=== PATIENT | male | born 1930 | race Caucasian/White ===

== ENCOUNTER 2018-02-14 08:31 | Observation (INO) | payer OTHER ==
[~2018-02-14] VITALS: Ht 177.8 cm; Wt 90.3 kg
[~2018-02-14 08:31] MED LIST: ALLOPURINOL100 MG PO; ASA81 MG; ASPIRIN EC81 MG PO; CARVEDILOL3.125 MG PO; CENTRUM SILVER1 EAC3 PO; COQ-10100 MG PO; D-3 PO; DIOVAN80 MG PO; FUROSEMIDE40 MG PO; GLUCOSAMINE &1 EAC1 PO; LASIX40 MG PO; LOSARTAN POTASS50 MG PO; METOLAZONE2.5 MG PO; METOLAZONE5 MG PO; MINOCYCLINE HC100 MG PO; NORCO 5-325 TA1 EACH PO; SPIRONOLACTONE25 MG PO; VITAMIN A AND1 EACH PO; VITAMIN E400 UNI1 PO; Z.0.AMLODIPINE BESY1; Z.0.LASIX40 MG; Z.0.METOPROLOL SUCC5; Z.0.SIMVASTATIN20 MG
[2018-02-14] MEDS ORDERED: ASPIRIN 325 MG TAB PO ONE (08:45)
--- NOTE | 2018-02-14 09:13 | Diagnostic Imaging Report ---
PROCEDURE: A single AP view of the chest. COMPARISON: Chest radiograph 09/18/17. INDICATIONS: CHEST PAIN FINDINGS: Lines/tubes: Left sided AICD device in unchanged position. Lungs: Opacity in the right lower and left mid and lower lung zones. Findings of venous cephalization without evidence of pulmonary edema. Pleura: Bilateral small pleural effusions. Heart and mediastinum: Enlarged cardiomediastinal silhouette is again noted. Atherosclerotic calcification of the aortic arch. Status post percutaneous aortic valve replacement. Bones: No acute bony abnormality. Status post median sternotomy. IMPRESSION: Cardiomegaly with small bilateral pleural effusions. Pulmonary venous congestion without pulmonary edema. Lower lung zone predominant opacities, likely atelectasis. Dictated by: CAREN HATCH M.D. on 02/14/2018 at 9:18 Electronically approved by: CAREN HATCH M.D. on 02/14/2018 at 9:18
[2018-02-14 09:18] LABS: BASOPHILS % 0.4 % (0.0-1.0); EOSINOPHILS # (AUTO) 0.1 (0.0-0.4); EOSINOPHILS % 0.9 % (0.0-6.0); HEMATOCRIT 38.1 % (38.2-49.6); HEMOGLOBIN 13.5 g/dL (14.0-18.0); LYMPHOCYTES # (AUTO) 1.2 (1.0-3.2); LYMPHOCYTES % 16.7 % (18.0-39.1); MEAN CORPUSCULAR HEMOGLOBIN 34.4 pg (28-32); MEAN CORPUSCULAR HGB CONC 35.4 g/dL (31-35); MEAN CORPUSCULAR VOLUME 96.9 fL (81-99); MONOCYTES # (AUTO) 0.9 (0.2-0.8); MONOCYTES % 11.9 % (4.4-11.3); NEUTROPHILS # (AUTO) 5.2 (2.1-6.9); NEUTROPHILS % 69.6 % (38.7-80.0); PLATELET COUNT 218 x10e3/uL (140-360); RED BLOOD COUNT 3.93 x10e6/uL (4.3-5.7); RED CELL DISTRIBUTION WIDTH 13.8 % (11.7-14.4)
[2018-02-14 09:28] LABS: INR 1.19; PROTHROMBIN TIME 14.2 seconds (11.9-14.5)
[2018-02-14 09:29] LABS: PARTIAL THROMBOPLASTIN TIME 28.6 seconds (23.8-35.5)
[2018-02-14 09:36] LABS: ALANINE AMINOTRANSFERASE 32 IU/L (0-55); ALBUMIN 3.4 g/dL (3.5-5.0); ALKALINE PHOSPHATASE 51 IU/L (40-150); BLOOD UREA NITROGEN 22 mg/dL (7-26); BUN/CREATININE RATIO 20 (6-25); CALCIUM 8.9 mg/dL (8.4-10.2); CARBON DIOXIDE 22 mmol/L (22-29); CHLORIDE 99 mmol/L (98-107); CREATINE KINASE 94 IU/L (30-200); CREATININE, SERUM 1.12 mg/dL (0.72-1.25); EST GLOMERULAR FILTRATION RATE > 60 ML/MIN (60-); GLUCOSE 143 mg/dL (74-118); SODIUM 132 mmol/L (136-145)
[2018-02-14] MEDS ORDERED: ONDANSETRON HCL INJ 2 MG/ML VIAL IV PRN (11:30)
[2018-02-14 13:00] VITALS: BP 173/85
[2018-02-14] MEDS: FUROSEMIDE INJ 10 MG/ML 4 ML VIAL IV SCH ×2 (13:10→21:10)
[2018-02-14] MEDS ORDERED: CARVEDILOL 3.125 MG TAB PO SCH (13:15)
[2018-02-14 13:35] LABS: CHOL/HDL RATIO 5.2 (3.9-4.7)
[2018-02-14 13:50] VITALS: BP 173/85
[2018-02-14] MEDS: ACETAMINOPHEN 325 MG TAB PO PRN (14:28)
--- NOTE | 2018-02-14 14:29 | Consultation ---
DATE OF CONSULTATION: February 14, 2018 CARDIOLOGY CONSULTATION REQUESTING PHYSICIAN: Dr. Garcia. REASON FOR CONSULTATION: Chest pain and CHF. HISTORY OF PRESENT ILLNESS: This is an 87-year-old male that presented with shortness of breath. According to the patient and at the bedside, yesterday he started having chest pain, shortness of breath, and he called 911. When the ambulance arrived, he refused to come to the emergency room and decided to stay at home to see if he was going to get better or not. He stated this morning he started having the chest pain again on the left side of the chest on a scale of 5 out of 10 with no radiation, orthopnea, that he decided to come into the emergency room for evaluation. He has a history of CAD, aortic valve replacement, and ICD. He stated his diplomatic courier is Dr. Pathak with [facility] and he was seen recently 2 weeks ago by him. He denied any palpitation, any dizziness, any diaphoresis or headache. Troponin x1 was negative. EKG showed no ST abnormalities. BNP 1481, and chest x-ray showed cardiomegaly with small bilateral pleural effusion, pulmonary venous congestion without pulmonary edema. PAST MEDICAL HISTORY: BPH, gout, hypertension, hyperlipidemia, COPD, aortic valve replacement, systolic CHF, and obesity. PAST SURGICAL HISTORY: Tonsillectomy, aortic valve replacement, open heart surgery x4 vessels, and ICD placement. FAMILY HISTORY: Noncontributory. SOCIAL HISTORY: He lives at home with the , and he quit smoking in the 60s. MEDICATIONS: He was on allopurinol, aspirin, Coreg, Aldactone, Diovan, and Lasix. ALLERGIES: HE IS NOT ALLERGIC TO ANY MEDICATION. REVIEW OF SYSTEMS: Negative except those mentioned above. He is positive for chest pain and shortness of breath. PHYSICAL EXAMINATION VITAL SIGNS: Temperature 98, heart rate 61, respiration 18, blood pressure 148/81, oxygen saturation 97% on room air. GENERAL: He is obese, awake, alert, and oriented x3. HEENT: Mucous membrane moist. NECK: Supple. LUNGS: Bilaterally with decreased breath sounds. CARDIOVASCULAR: S1/S2 present with systolic murmur. ABDOMEN: Soft. NEUROLOGICAL: He is able to move all extremities. EXTREMITIES: Bilateral lower extremity with no edema. LABS: Sodium 132, potassium 4.0, chloride 99, CO2 22, BUN 22, creatinine 1.12, glucose 143. White blood cell 7.41, hemoglobin 13.5, hematocrit 38.1, platelet 218. PT 14.2, PTT 28.6, INR 1.19. IMPRESSION 1. Acute systolic congestive heart failure exacerbation. 2. Coronary artery disease with implantable cardioverter-defibrillator. 3. Aortic valve replacement with coronary artery bypass graft. 4. Hypertension. 5. Hyperlipidemia. 6. Hyponatremia. 7. Chest pain. 8. History of gout. ASSESSMENT/PLAN 1. Will go ahead and get an echocardiogram to reassess the LV and the valve function. He had an echo done in 2016 that showed depressed systolic function, EF 30% to 35%. 2. He had an aortic valve replacement, but he is not sure if it is prosthetic or nonprosthetic and he is not on any p.o. anticoagulation, just aspirin. 3. Will go ahead and get his home medication list. Will get serial cardiac enzymes, put him on fluid restriction 1.5 liter. Will continue diuretic, beta sarah and JOSHUA inhibitor. Further cardiac workup pending clinical course. Thank you for this consultation. Dictated by: Mohit Alaniz NP Job#: [id number]
[2018-02-14] MEDS: CARVEDILOL 12.5 MG TAB PO SCH ×2 (14:53→21:11)
[2018-02-14 15:10] VITALS: BP 152/73
[2018-02-14] MEDS: TRAMADOL HCL 50 MG TAB PO PRN (17:14)
--- NOTE | 2018-02-14 17:54 | Diagnostic Imaging Report ---
PROCEDURE:X-RAY RIGHT SHOULDER, COMPLETE COMPARISON:None. INDICATIONS:RIGHT SHOULDER PAIN FINDINGS: There are no fractures, dislocations, lytic or blastic lesions. Adequate internal and external rotation. Degenerative changes of the right AC joint. The soft-tissues are unremarkable. CONCLUSION: No acute fracture or dislocation of the right shoulder. Dictated by: Kulwant Childress M.D. on 02/14/2018 at 18:00 Electronically approved by: Kulwant Childress M.D. on 02/14/2018 at 18:00
[2018-02-14 18:24] LABS: CREATINE KINASE MB 3.1 ng/mL (0-5.0)
[2018-02-14 20:00] VITALS: BP 148/71
[2018-02-14 21:00] VITALS: BP 148/71
[2018-02-15] VITALS: BP 156/74
[2018-02-15 04:00] VITALS: BP 159/72
[2018-02-15 05:49] LABS: CHOL/HDL RATIO 5.6 (3.9-4.7)
[2018-02-15 08:10] VITALS: BP 166/76
[2018-02-15 08:11] VITALS: BP 166/76
[2018-02-15] MEDS: FUROSEMIDE INJ 10 MG/ML 4 ML VIAL IV SCH (08:20)
[2018-02-15] MEDS: CARVEDILOL 12.5 MG TAB PO SCH (08:21)
[2018-02-15] MEDS: TRAMADOL HCL 50 MG TAB PO PRN (08:22)
[2018-02-15] MEDS ORDERED: ALLOPURINOL 100 MG TAB PO SCH (09:00)
[2018-02-15] MEDS ORDERED: VALSARTAN 80 MG TAB PO SCH (09:00)
[2018-02-15] MEDS ORDERED: ASPIRIN 81 MG ENTERIC COATED PO SCH (09:00)
[2018-02-15] MEDS ORDERED: ASPIRIN 325 MG TAB EC PO SCH (09:00)
[2018-02-15] MEDS ORDERED: VALSARTAN 160 MG TAB PO SCH (09:00)
[2018-02-15 11:22] VITALS: BP 129/58
[2018-02-15] MEDS: ACETAMINOPHEN 325 MG TAB PO PRN (12:34)
[2018-02-15] MEDS ORDERED: LASIX40 MG PO (15:00)
[2018-02-15] MEDS ORDERED: ALDACTONE25 MG PO (15:00)
== END 2018-02-15 15:15 | disposition home or self-care (01) ==
LOC: ER 08:31 → ERHOLD 11:36 → IMCU 12:29
PROVIDERS: ADMIT Internal Medicine; ATTEND Internal Medicine
DX: I11.0 Hypertensive heart disease with heart failure (principal); I50.23 Acute on chronic systolic (congestive) heart failure; R07.9 Chest pain, unspecified; Z95.0 Presence of cardiac pacemaker; I25.10 Atherosclerotic heart disease of native coronary artery without angina pectoris; Z95.1 Presence of aortocoronary bypass graft; I71.4 Abdominal aortic aneurysm, without rupture; Z95.2 Presence of prosthetic heart valve; Z95.810 Presence of automatic (implantable) cardiac defibrillator; E78.5 Hyperlipidemia, unspecified; E87.1 Hypo-osmolality and hyponatremia; M10.9 Gout, unspecified; J90 Pleural effusion, not elsewhere classified
CPT/HCPCS: 36415 ×2; 71045; 73030; 80053; 80061 ×2; 82550 ×2; 82553 ×2; 83036; 83735; 83880; 84484 ×2; 85025; 85610; 85730; 93005; 93306; 97116; 97161; 99284; G0378 ×2; G8978; G8979; J1940 ×2; J2405

== ENCOUNTER 2018-08-24 17:37 | Observation (INO) | payer MEDICARE, OTHER ==
[~2018-08-24] VITALS: Ht 177.8 cm; Wt 100.5 kg
[~2018-08-24 17:37] MED LIST changes: +ALDACTONE25 MG PO
--- OUTSIDE RECORDS SUMMARY | 2018-08-24 17:41 | XMS REPORT | Continuity of Care Document ---
Author Author Konstantin rojas Organization Interface Address Unknown Phone Unavailable Problems Problem Status Onset Date Classification Date Reported Comments Source 424.0, 779.7 Active 01/08/2015 [facility] UNK Active 12/01/2013 [facility] CARDIAC REHAB Active 07/19/2012 [facility] SEVERE AORTIC STENOSIS, ACUTEON CHRONIC Active 05/20/2012 [facility] SEVERE AORTIC STENOSIS, CHF Active 02/15/2012 [facility] ANGINA Active 01/12/2012 [facility] Aortic aneurysm, abdominal Resolved Problem 02/04[facility] - Repair of abdominal aortic aneurysm using bifurcation graft Active Problem 04/17/2016 SHAILESH Rojas [facility] [place] Acute myocardial infarction Active Problem 04/17/2016 SHAILESH Rojas [facility] [place] Aortic aneurysm, abdominal Resolved Problem 04/17/2016 [facility] [place] Aortic stenosis Resolved Problem 04/17/2016 SHAILESH Rojas [facility] [place] CABG - Coronary artery bypass graft<sup>1</sup> Resolved Problem 04/17/20162008 SHAILESH Rojas [facility] [place] CABG - Coronary artery bypass graft Active Problem 04/17/2016 SHAILESH Rojas [facility] [place] Chest pain Active Problem 04/17/2016 SHAILESH Rojas [facility] [place] Hypercholesterolemia Active Problem 04/17/2016 SHAILESH Rojas [facility] [place] Hypertension monitoring telephone invite Active Problem 04/17/2016 SHAILESH Rojas [facility] [place] Ischemic cardiomyopathy Active Problem 04/17/2016 [facility]AILESH Rojas [facility] [place] AAA - Repair of abdominal aortic aneurysm using bifurcation graft Active Problem [facility]/09[facility] [place] Acute myocardial infarction Active Problem 02/09/2013 [facility] [place] Aortic aneurysm, abdominal Resolved Problem 02/09/2013 SHAILESH Rojas,[facility], [facility] [place] Aortic stenosis Resolved Problem 02/09/2013 SHAILESH Rojas,[facility], [facility] [place] CABG - Coronary artery bypass graft<sup>1</sup> Resolved Problem 02/09/2013 [id number] SHAILESH Rojas,[facility], [facility] [place] CABG - Coronary artery bypass graft Active Problem 02/09/2013 SHAILESH Rojas,[facility], [facility] [place] Chest pain Active Problem 02/09/2013 SHAILESH Rojas,[facility], [facility] [place] Hypercholesterolemia Active Problem 02/09/2013 SHAILESH Rojas,[facility], [facility] [place] Hypertension monitoring telephone invite Active Problem 02/09/2013 SHAILESH Rojas,[facility], [facility] [place] Ischemic cardiomyopathy Active Problem 02/09/2013 SHAILESH Rojas,[facility], [facility] [place] AORTIC VALVE DISORDER Active [facility] AC/CHR SYST/ALEKSANDRA HRT FAIL Active [facility] PERVENT LEUKOMALACIA Active [facility] Medications Medication Details Route Status Patient Instructions Ordering Provider Order Date Source Co-Q10 100 mg oral capsule 200 mg, 2 cap, PO, Daily, 30 cap, Substitution Allowed, CAP PO Active Jordon 05/28/2012 [facility] Fish Oil 1000 mg oral capsule 1,000 mg, 1 cap, PO, Daily, 30 cap, Substitution Allowed, CAP PO Active Jordon 05/28/2012 [facility] Toprol-XL 50 mg oral tablet, extended release 50 mg, 1 tab, PO, BID, 30 tab, Substitution Allowed, ERTAB PO Active Jordon 05/28/2012 [facility] losartan 50 mg oral tablet 50 mg, 1 tab, PO, Daily, 30 tab, Substitution Allowed, TAB PO Active Jordon 05/28/2012 [facility] aspirin 81 mg tablet, enteric coated 81 mg, 1 tab, PO, Daily, 30 tab, Substitution Allowed, ECTAB PO Active Jordon 05/28/2012 [facility] potassium chloride 40 mEq, 2 tab, Route: PO, Drug form: ERTAB, ONCE, Dosing Weight 89.801, kg, Start date: 05/28/12 7:56:00, Duration: 1 doses or times, Stop date: 05/28/12 7:56:00, For K=3.5 - 3.9 mEq/LFor K=3.5 - 3.9 mEq/L PO No Longer Active Park 05/28/2012 [facility] Restoril 15 mg, 1 cap, Route: PO, Drug form: CAP, Bedtime, PRN Sleep, Start date: 05/27/12 20:16:00, Duration: 30 day, Stop date: 06/26/12 20:15:00 PO No Longer Active Vejpongsa 05/28/2012 [facility] Ambien 5 mg, Route: PO, Bedtime, Dosing Weight 89.801, kg, PRN Insomnia, Start date: 05/27/12 20:09:00, Duration: 30 day, Stop date: 06/26/12 20:08:00 PO No Longer Active Vejpongsa 05/28/2012 [facility] Fish Oil 1,000 mg, 1 cap, Route: PO, Drug form: CAP, Daily, Dosing Weight 89.801, kg, Start date: 05/27/12 13:30:00, Duration: 30 day, Stop date: 06/26/12 9:00:00 PO No Longer Active Viri 05/27/2012 [facility] Co-Q10 200 mg, 1 cap, Route: PO, Drug form: CAP, Daily, Dosing Weight 89.801, kg, Start date: 05/27/12 13:30:00, Duration: 30 day, Stop date: 06/26/12 9:00:00 PO No Longer Active Viri 05/27/2012 [facility] Colace 100 mg oral capsule 100 mg, 1 cap, Route: PO, Drug form: CAP, BID, Dosing Weight 89.801, kg, Priority: NOW, Start date: 05/27/12 10:27:00, Duration: 30 day, Stop date: 06/26/12 9:00:00 PO No Longer Active Park 05/27/2012 [facility] MiraLax 17 gm, 1 pkt, Route: PO, Drug form: PWDR, Daily, Dosing Weight 89.801, kg, Priority: NOW, Start date: 05/27/12 10:26:00, Duration: 30 day, Stop date: 06/26/12 9:00:00 PO No Longer Active Park 05/27/2012 [facility] Toprol-XL 50 mg oral tablet, extended release 50 mg, 1 tab, Route: PO, Drug form: ERTAB, BID, Start date: 05/27/12 9:00:00, Duration: 30 day, Stop date: 06/25/12 17:00:00 PO No Longer Active Jordon 05/27/2012 [facility] calcium gluconate + Sodium Chloride 0.9% IV 100 mL 2,000 mg, 20 mL, Route: IVPB, ONCE, Dosing Weight 89.801, kg, Start date: 05/27/12 4:25:00, Stop date: 05/27/12 4:25:00 IVPB No Longer Active Canales 05/27/2012 [facility] Saline Flush 0.9% 5 ml, Route: IVP, Drug Form: INJ, Dosing Weight 89.801, kg, Q12H, Start date: 05/26/12 21:00:00, Duration: 30 day, Stop date: 06/25/12 9:00:00 IVP No Longer Active Matheus 05/27/2012 [facility] Ancef 1 gm, Route: IVPB, Drug form: PDR/INJ, ONCE, Dosing Weight 89.801, kg, Start date: 05/26/12 20:00:00, Duration: 1 doses or times, Stop date: 05/26/12 20:00:00 IVPB No Longer Active Matheus 05/27/2012 [facility] lidocaine 1% 5 mL, Route: SUB-Q, Drug Form: INJ, Dosing Weight 89.801, kg, ONCE, NOW, Start date: 05/26/12 14:19:00, Stop date: 05/26/12 14:19:00 SUB-Q No Longer Active Xavier 05/26/2012 [facility] magnesium sulfate 2 gm, 50 mL, Route: IVPB, Drug form: INJ, Q2H, Start date: 05/26/12 14:00:00, Duration: 2 doses or times, Stop date: 05/26/12 16:00:00 IVPB No Longer Active Viri 05/26/2012 [facility] potassium chloride 20 mEq, Route: IVPB, Q2H, Dosing Weight 89.801, kg, Total dose=40 mEq, Start date: 05/26/12 14:00:00, Duration: 2 doses or times, Stop date: 05/26/12 16:00:00 IVPB No Longer Active Matheus 05/26/2012 [facility] losartan 50 mg, 1 tab, Route: PO, Drug form: TAB, Daily, Dosing Weight 89.801, kg, Priority: NOW, Start date: 05/26/12 13:51:00, Duration: 30 day, Stop date: 06/25/12 9:00:00 PO No Longer Active Jordon 05/26/2012 [facility] normal saline 0.9% IV 1,000 mL 1,000 mL, Rate: 50 ml/hr, Infuse over: 20 hr, Route: IV, kg, Total Volume: 1,000, Start date: 05/26/12 13:37:00, Duration: 30 day, Stop date: 06/25/12 13:36:00 IV No Longer Active Xavier 05/26/2012 [facility] potassium chloride 40 mEq, 2 tab, Route: PO, Drug form: ERTAB, ONCE, Dosing Weight 89.801, kg, Electrolyte replacement, Priority: NOW, Start date: 05/26/12 13:28:00, Stop date: 05/26/12 13:28:00 PO No Longer Active Viri 05/26/2012 [facility] magnesium sulfate 4 gm, Route: IV, ONCE, Dosing Weight 89.801, kg, Priority: NOW, Start date: 05/26/12 13:27:00, Stop date: 05/26/12 13:27:00 IV No Longer Active Viri 05/26/2012 [facility] morphine Sulfate 2 mg, 1 mL, Route: IVP, Drug form: INJ, ONCE, Dosing Weight 89.801, kg, Priority: NOW, Start date: 05/26/12 12:07:00, Stop date: 05/26/12 12:07:00 IVP No Longer Active Matheus 05/26/2012 [facility] normal saline 0.9% IV 500 mL 500 mL, Rate: 999 ml/hr, Infuse over: 0.5 hr, Route: IV, kg, Total Volume: 500, Start date: 05/26/12 11:57:00, Duration: 1 doses or times, Stop date: 05/26/12 12:26:00 IV No Longer Active Matheus 05/26/2012 [facility] morphine Sulfate 1 mg, 0.5 mL, Route: IVP, Drug form: INJ, Q6H, Dosing Weight 89.801, kg, PRN Pain, Start date: 05/26/12 11:56:00, Duration: 1 day, Stop date: 05/27/12 11:55:00 IVP No Longer Active Matheus 05/26/2012 [facility] Saline Flush 0.9% 5 ml, Route: IVP, Drug Form: INJ, Dosing Weight 89.801, kg, PRN, PRN Line Flush, Start date: 05/26/12 11:24:00, Duration: 30 day, Stop date: 06/25/12 11:23:00 IVP No Longer Active Matheus 05/26/2012 [facility] aspirin 81 mg, 1 tab, Route: PO, Drug form: ECTAB, Daily, Dosing Weight 89.801, kg, Start date: 05/26/12 9:00:00, Stop date: 06/23/12 21:00:00 PO No Longer Active Clifford 05/26/2012 [facility] losartan 50 mg, 1 tab, Route: PO, Drug form: TAB, Daily, Dosing Weight 89.801, kg, Start date: 05/26/12 9:00:00, Duration: 30 day, Stop date: 06/24/12 9:00:00 PO No Longer Active Jordon 05/26/2012 [facility] pneumococcal 23-valent vaccine 0.5 ml, Route: IM, Drug Form: INJ, Daily, Start date: 05/26/12 9:00:00, Duration: 1 doses or times, Stop date: 05/26/12 9:00:00 IM No Longer Active SYSTEM 05/26/2012 [facility] potassium chloride 40 mEq, 2 tab, Route: PO, Drug form: ERTAB, ONCE, Dosing Weight 89.801, kg, Start date: 05/26/12 3:13:00, Stop date: 05/26/12 3:13:00 PO No Longer Active Clifford 05/26/2012 [facility] potassium chloride 20 mEq, 100 mL, Route: IVPB, Q2H, Dosing Weight 89.801, kg, Total dose=60 mEq, Start date: 05/26/12 2:00:00, Duration: 3 doses or times, Stop date: 05/26/12 6:00:00 IVPB No Longer Active [facility] 05/26/2012 [facility] potassium chloride 40 mEq, 2 tab, Route: PO, Drug form: ERTAB, Daily, Dosing Weight 89.801, kg, Start date: 05/26/12 0:08:00, Duration: 30 day, Stop date: 06/24/12 9:00:00 PO No Longer Active [facility] 05/26/2012 [facility] cefazolin 1 gm, Route: IV, Drug form: PDR/INJ, ONCE, Dosing Weight 89.801, kg, Start date: 05/25/12 18:08:00, Stop date: 05/25/12 18:08:00 IV No Longer Active [facility] 05/26/2012 [facility] Co-Q10 100 mg oral capsule 200 mg, 2 cap, PO, Daily, 60 cap, Substitution Allowed, CAP PO No Longer Active Jordon 05/25/2012 [facility] furosemide 40 mg oral tablet 40 mg, 1 tab, PO, Daily, 30 tab, Substitution Allowed, TAB PO No Longer Active 05/25/2012 [facility] metolazone 10 mg oral tablet 10 mg, 1 tab, PO, Daily, 30 tab, Substitution Allowed, TAB PO No Longer Active 05/25/2012 [facility] Metoprolol Tartrate 50 mg oral tablet 50 mg, 1 tab, PO, Daily, Substitution Allowed PO No Longer Active 05/25/2012 [facility] pneumococcal 23-valent vaccine 0.5 ml, Route: IM, Drug Form: INJ, Start date: 05/19/12 9:00:00, Stop date: 05/19/12 9:00:00 IM No Longer Active SYSTEM 05/19/2012 SHAILESH Rojas,[facility], SHAILESH Marrero losartan 50 mg oral tablet 50 mg, 1 tab, PO, Daily, 30 tab, 2, 2, Substitution Allowed, TAB PO Active Roe 02/19/2012 [facility] potassium chloride 20 mEq oral tablet, extended release 20 mEq, 1 tab, Route: PO, Drug form: ERTAB, Q12H, Start date: 02/18/12 21:00:00, Duration: 2 day, Stop date: 02/20/12 9:00:00 PO No Longer Active Elaine 02/19/2012 [facility] Saline Flush 0.9% 5 ml, Route: IVP, Drug Form: INJ, Q12H, Start date: 02/18/12 12:00:00, Duration: 30 day, Stop date: 03/19/12 9:00:00 IVP No Longer Active Xavier 02/18/2012 [facility] Saline Flush 0.9% 5 ml, Route: IVP, Drug Form: INJ, PRN, PRN Line Flush, Start date: 02/18/12 11:04:00, Duration: 30 day, Stop date: 03/19/12 11:03:00 IVP No Longer Active Xavier 02/18/2012 [facility] DOBUTamine 1000 mg in 250 ml [id number] Premix (titrate) 1,000 mg 1,000 mg, 250 mL, Rate: 3 micrograms/kg/min, Route: IV, Total Volume: 250, Start date: 02/18/12 11:04:00, Duration: 30 day, Stop date: 03/19/12 11:03:00, Replace Every: 24 hr IV No Longer Active Xavier 02/18/2012 [facility] multivitamin with iron 1 tab, Route: PO, Drug Form: CAP, Daily, Start date: 02/18/12 9:00:00, Duration: 30 day, Stop date: 03/18/12 9:00:00 PO No Longer Active Jessica 02/18/2012 [facility] Toprol-XL 25 mg oral tablet, extended release 25 mg, Route: PO, Drug form: ERTAB, Q12H, Start date: 02/18/12 9:00:00, Duration: 30 day, Stop date: 03/18/12 21:00:00 PO No Longer Active Jessica 02/18/2012 [facility] metolazone 5 mg oral tablet 5 mg, 1 tab, Route: PO, Drug form: TAB, Daily, Start date: 02/18/12 9:00:00, Duration: 30 day, Stop date: 03/18/12 9:00:00 PO No Longer Active Jessica 02/18/2012 [facility] losartan 50 mg, Route: PO, Drug form: TAB, Daily, Start date: 02/18/12 9:00:00, Duration: 30 day, Stop date: 03/18/12 9:00:00 PO No Longer Active Jessica 02/18/2012 [facility] furosemide 20 mg oral tablet 20 mg, 1 tab, Route: PO, Drug form: TAB, Daily, Start date: 02/18/12 9:00:00, Duration: 30 day, Stop date: 03/18/12 9:00:00 PO No Longer Active Jessica 02/18/2012 [facility] potassium chloride 20 mEq/15 mL oral liquid 70 mEq, Route: PO, Drug form: LIQ, Daily, Start date: 02/18/12 9:00:00, Duration: 30 day, Stop date: 03/18/12 9:00:00 PO No Longer Active Jessica 02/18/2012 [facility] metoprolol extended release 12.5 mg, 1 ea, Route: PO, Drug form: TAB, ONCE, Start date: 02/18/12 3:42:00, Stop date: 02/18/12 3:42:00 PO Active Jessica 02/18/2012 [facility] metoprolol extended release 12.5 mg, 1 ea, Route: PO, Drug form: TAB, ONCE, Priority: NOW, Start date: 02/18/12 3:29:00, Stop date: 02/18/12 3:29:00 PO No Longer Active Blanca Mendoza 02/18/2012 [facility] metoprolol extended release 12.5 mg, 1 ea, Route: PO, Drug form: TAB, ONCE, Start date: 02/18/12 3:20:00, Stop date: 02/18/12 3:20:00 PO No Longer Active Jessica 02/18/2012 [facility] magnesium sulfate 2 gm, 50 mL, Route: IVPB, Drug form: INJ, ONCE, Total dose=2 gm, Start date: 02/18/12 3:13:00, Duration: 1 doses or times, Stop date: 02/18/12 3:13:00 IVPB No Longer Active Blanca Mendoza 02/18/2012 [facility] aspirin 81 mg, 1 tab, Route: PO, Drug form: CHEWTAB, ONCE, Start date: 02/18/12 3:00:00, Stop date: 02/18/12 3:00:00 PO No Longer Active Blanca Mendoza 02/18/2012 [facility] cefazolin 1 gm, Route: IVPB, Drug form: PDR/INJ, ONCALL, Start date: 02/18/12 3:00:00, Duration: 1 doses or times, Stop date: 02/18/12 18:00:00 IVPB No Longer Active Cat 02/18/2012 [facility] Restoril 30 mg, 2 cap, Route: PO, Drug form: CAP, Bedtime, PRN Sleep, Start date: 02/17/12 22:05:00, Duration: 30 day, Stop date: 03/18/12 22:04:00 PO No Longer Active Jessica 02/18/2012 [facility] Ambien 10 mg, Route: PO, Bedtime, PRN Insomnia, Start date: 02/17/12 21:56:00, Duration: 30 day, Stop date: 03/18/12 21:55:00 PO No Longer Active Jessica 02/18/2012 [facility] losartan 50 mg, 1 tab, Route: PO, Drug form: TAB, Daily, Start date: 02/17/12 21:15:00, Stop date: 03/18/12 9:00:00 PO No Longer Active Ronda 02/18/2012 [facility] Toprol-XL 25 mg oral tablet, extended release 25 mg, 1 tab, Route: PO, Drug form: ERTAB, Q12H, Start date: 02/17/12 21:14:00, Stop date: 03/18/12 21:00:00 PO No Longer Active Meyers 02/18/2012 [facility] potassium chloride 20 mEq/15 mL oral liquid 70 mEq, 52.5 mL, Route: PO, Drug form: LIQ, ONCE, Start date: 02/17/12 21:14:00, Stop date: 02/17/12 21:14:00 PO No Longer Active Jessica 02/18/2012 [facility] Co-Q10 200 mg oral tablet 200 mg, 1 tab, PO, Daily, Substitution Allowed, TAB PO Active 02/17/2012 [facility] pneumococcal 23-valent vaccine 0.5 ml, Route: IM, Drug Form: INJ, Start date: 01/28/12 9:00:00, Stop date: 01/28/12 9:00:00 IM No Longer Active SYSTEM 01/28/2012 SHAILESH Rojas,[facility], SAHILESH Marrero Allergies, Adverse Reactions, Alerts Substance Category Reaction Severity Reaction type Status Date Reported Comments Source Food Lactose Intolerance (Restricts Milk/Milk Products) propensity to adverse reactions to substance Adverse Reaction Active [facility] nonsteroidal antiinflammatory agent drug allergy Allergy Active [facility] statins drug allergy Allergy Active [facility] Immunizations Immunization Date Given Site Status Last Updated Comments Source pneumococcal 23-valent vaccine 05/19/2012 Not Given Grun SHAILESH Rojas,[facility], SHAILESH Marrero pneumococcal 23-valent vaccine 01/28/2012 Right deltoid completed Vinicius SHAILESH Rojas, SHAILESH [place] pneumococcal 23-valent vaccine 01/28/2012 flower Colvin SHAILESH Rojas,[facility], SHAILESH Marrero Results Order Name Results Value Reference Range Date Interpretation Comments Source Chest 2 views DX Chest 2 views DX EXAM: XR CHEST 2 VIEWS DATE: 04/14/2016 2:52 PM CDT INDICATION: I35.0 Nonrheumatic aortic (valve) stenosis COMPARISON: 02/01/2015 TECHNIQUE: PA and lateral chest radiographs FINDINGS: Lines, tubes and hardware: Pacemaker with leads in the right atrium and right ventricle. Median sternotomy sutures. Evidence of aortic valve replacement unchanged in appearance since prior examination. Lungs and pleura: Blunting of right costophrenic angle most likely related to fibrosis or small effusion and unchanged from prior examination of 02/01/2015 No pneumothorax. Heart and mediastinum: There is cardiomegaly.. Other mediastinal contours are normal. There is atherosclerotic calcifications of the thoracic aorta. Bones: Mild spondylosis of the thoracic spine IMPRESSION: 1. Persistent blunting the right costophrenic angle either due to fibrosis or small pleural effusion. 2. Unchanged moderate cardiomegaly. 3. Clear lungs. 04/14/2016 - - Read by: Morgan Fernandez MD Dictated Date/time: 04/14/16 15:13 Electronically Signed by: Morgan Fernandez MD 10/04/16 15:18 FINAL REPORT [facility] Chest 2 views DX Chest 2 views DX EXAM: XR CHEST 2 VIEWS DATE: February 01, 2015 at 1231 hours. INDICATION: Aortic disorder, fatigue. COMPARISON: February 07, 2013. TECHNIQUE: PA and lateral chest radiographs FINDINGS: A small right-sided pleural effusion persists. There is a well-defined area of mild haziness of the right lateral hemithorax. This appearance may be the result of fluid tracking along the minor and/or major fissure . There has been interval placement of a 3-lead pacemaker device. An aortic valve prosthesis is unchanged in appearance or position. Dense atherosclerotic calcifications are again noted within the thoracic aorta. The cardiomediastinal silhouette is stable. No acute bony or soft tissue abnormality is identified. Postsurgical changes are again noted. IMPRESSION: 1. Persistent right-sided pleural effusion, which is likely redistributed along the fissure(s). 2. Interval placement of a triple lead pacemaker device. Interpreted by Cherie Montelongo MD. 02/01/2015 - - Read by: Cherie Montelongo MD Dictated Date/time: 02/01/15 14:41 Electronically Signed by: Cherie Montelongo MD 02/01/15 14:53 FINAL REPORT SHAILESH Rojas Chest 2 views Chest 2 views CHEST RADIOGRAPHY CLINICAL HISTORY: Aortic valve disorder and cardiomyopathy. COMPARISON IMAGIN02/03/2013 radiography. FINDINGS: Two views of the chest were acquired and submitted for evaluation. The right costophrenic angle remains blunted, likely indicating a small stable right pleural effusion. Pleural thickening is considered less likely. The cardiac silhouette is stable status post median sternotomy and aortic valve replacement. Lungs appear clear. Bones are unremarkable. IMPRESSION: Stable small right pleural effusion. 02/07/2013 - - Read by: Rodney Chun Dictated Date/time: 02/07/13 13:24 Electronically Signed by: Rodney Chun MD 02/07/13 13:26 FINAL REPORT SHAILESH Marrero Chest 2 views Chest 2 views CHEST 2 VIEWS dated 2013-02-03 13:41:00 COMPARISON: 07/11/2012 CLINICAL INDICATION: Aortic stenosis, cardiomyopathy FINDINGS: Frontal and lateral chest radiographs are submitted for interpretation. The cardiomediastinal silhouette is stable with median sternotomy sutures and aortic valve replacement prosthesis. Persistent mild right pleural effusion versus thickening, stable compared to previous exam. Impression: 1. Persistent mild right pleural effusion versus thickening, stable compared to previous exam. 02/03/2013 - - Read by: Negrita Mayers Dictated Date/time: 02/03/13 14:23 Electronically Signed by: Negrita Mayers MD 02/03/13 14:25 FINAL REPORT SHAILESH Vargheseann BEDSIDE GLUCOSE TESTING Gluc POC Lifscn 115 mg/dL 70 - 99 05/28/2012 HI 1Interpretive Data: Upper Reportable Limit: 200 mg/dL. [facility] BEDSIDE GLUCOSE TESTING Comment1 Notify COLLIN/ 05/28/2012 NA [facility] BEDSIDE GLUCOSE TESTING Gluc POC Lifscn 112 mg/dL 70 - 99 05/28/2012 HI 2Interpretive Data: Upper Reportable Limit: 200 mg/dL. [facility] CHEMISTRY eGFR 69 mL/min/1.73m2 05/28/2012 NA 5Result Comment: The eGFR is calculated using the CKD-EPI formula. In most young, healthy individuals the eGFR will be >90 mL/min/1.73m2. The eGFR declines with age. An eGFR of 60-89 may be normal in some populations, particularly the elderly, for whom the CKD-EPI formula has not been extensively validated. Use of the eGFR is not recommended in the following populations: Individuals with unstable creatinine concentrations, including patients and those with serious co-morbid conditions. Patients with extremes in muscle mass or diet. The data above are obtained from the National Kidney Disease Education Program (NKDEP) which additionally recommends that when the eGFR is used in patients with extremes of body mass index for purposes of drug dosing, the eGFR should be multiplied by the estimated BMI. [facility] CHEMISTRY Glucose Lvl 89 mg/dL 70 - 99 05/28/2012 Normal 8Interpretive Data: Adult reference range values reflect the clinical guidelines of the [place] [employer]. [facility] CHEMISTRY Sodium Lvl 145 meq/L 135 - 145 05/28/2012 Normal [facility] CHEMISTRY Creatinine Lvl 1.0 mg/dL 0.5 - 1.4 05/28/2012 Normal [facility] CHEMISTRY Potassium Lvl 3.9 meq/L 3.5 - 5.1 05/28/2012 Normal [facility] CHEMISTRY Calcium Lvl 8.1 mg/dL 8.5 - 10.5 05/28/2012 LOW [facility] CHEMISTRY Chloride Lvl 108 meq/L 95 - 109 05/28/2012 Normal [facility] CHEMISTRY CO2 26 meq/L 24 - 32 05/28/2012 Normal [facility] CHEMISTRY BUN 22 mg/dL 7 - 22 05/28/2012 Normal [facility] CHEMISTRY AGAP 14.9 meq/L 10.0 - 20.0 05/28/2012 Normal [facility] CHEMISTRY BNP 267 pg/mL <=100 05/28/2012 HI 11Interpretive Data: Elevated results are in line with increasing severity of congestive heart failure. Minor elevations between 100 and 300 may be seen with Myocardial Ischemia, Sodium retaining drugs, and compensated/treated heart failure. [facility] HEMATOLOGY Plt Morph Normal (05/28/2012 03:24:00) 05/28/2012 Normal [facility] HEMATOLOGY Segs 45.8 % 45.0 - 75.0 05/28/2012 Normal [facility] HEMATOLOGY Lymphocytes 27.0 % 20.0 - 40.0 05/28/2012 Normal [facility] HEMATOLOGY Basophils 0.7 % 0.0 - 1.0 05/28/2012 Normal [facility] HEMATOLOGY Eosinophils 6.7 % 0.0 - 4.0 05/28/2012 [facility] HEMATOLOGY Monocytes 19.8 % 2.0 - 12.0 05/28/2012 [facility] HEMATOLOGY Lymphocytes # 2.5 K/CMM 1.0 - 5.5 05/28/2012 Normal [facility] HEMATOLOGY Segs-Bands # 4.3 K/CMM 1.5 - 8.1 05/28/2012 Normal [facility] HEMATOLOGY Monocytes # 1.9 K/CMM 0.0 - 0.8 05/28/2012 [facility] HEMATOLOGY Eosinophils # 0.6 K/CMM 0.0 - 0.5 05/28/2012 [facility] HEMATOLOGY Macrocyte 1+ *ABN* (05/28/2012 03:24:00) None Seen 05/28/2012 ABN [facility] HEMATOLOGY Basophils # 0.1 K/CMM 0.0 - 0.2 05/28/2012 Normal [facility] HEMATOLOGY PTT 32.3 s 22.9 - 35.8 05/28/2012 Normal 17Interpretive Data: Heparin Therapeutic Range: 57 - 92 Seconds [facility] HEMATOLOGY PT 14.5 s 12.0 - 14.7 05/28/2012 Normal [facility] HEMATOLOGY INR 1.11 0.85 - 1.17 05/28/2012 Normal 14Interpretive Data: RECOMMENDED RANGES FOR PROTIME INR: 2.0-3.0 for most medical and surgical thromboembolic states. 2.5-3.5 for artificial heart valves and recurrent embolism. INR SHOULD BE USED ONLY FOR PATIENTS ON STABLE ANTICOAGULANT THERAPY. [facility] HEMATOLOGY MCH 35.7 pg 27.0 - 31.0 05/28/2012 [facility] HEMATOLOGY MCHC 35.3 g/dL 32.0 - 36.0 05/28/2012 [facility] HEMATOLOGY Platelet 95 K/CMM 133 - 450 05/28/2012 [facility] HEMATOLOGY RDW 13.9 % 11.5 - 14.5 05/28/2012 [facility] HEMATOLOGY MPV 11.0 fL 7.4 - 10.4 05/28/2012 [facility] HEMATOLOGY WBC 9.4 K/CMM 3.7 - 10.4 05/28/2012 [facility] HEMATOLOGY RBC 2.97 M/CMM 4.70 - 6.10 05/28/2012 [facility] HEMATOLOGY MCV 101.1 fL 80.0 - 94.0 05/28/2012 [facility] HEMATOLOGY Hgb 10.6 g/dL 14.0 - 18.0 05/28/2012 [facility] HEMATOLOGY Hct 30.0 % 42.0 - 54.0 05/28/2012 [facility] BEDSIDE GLUCOSE TESTING Comment1 Notify RN/MD 05/28/2012 [facility] BEDSIDE GLUCOSE TESTING Gluc POC Lifscn 107 mg/dL 70 - 99 05/28/2012 ME 3Interpretive Data: Upper Reportable Limit: 200 mg/dL. [facility] CHEMISTRY Ca Norm 1.09 mMol/L 1.16 - 1.30 05/27/2012 [facility] CHEMISTRY Ca Ion 1.08 mMol/L 1.16 - 1.30 05/27/2012 [facility] CHEMISTRY Ca Norm mgdL 4.36 mg/dL 4.65 - 5.20 05/27/2012 [facility] CHEMISTRY Ca Ion mgdL 4.32 mg/dL 4.65 - 5.20 05/27/2012 LOW [facility] CHEMISTRY eGFR 69 mL/min/1.73m2 05/27/2012 NA 6Result Comment: The eGFR is calculated using the CKD-EPI formula. In most young, healthy individuals the eGFR will be >90 mL/min/1.73m2. The eGFR declines with age. An eGFR of 60-89 may be normal in some populations, particularly the elderly, for whom the CKD-EPI formula has not been extensively validated. Use of the eGFR is not recommended in the following populations: Individuals with unstable creatinine concentrations, including patients and those with serious co-morbid conditions. Patients with extremes in muscle mass or diet. The data above are obtained from the National Kidney Disease Education Program (NKDEP) which additionally recommends that when the eGFR is used in patients with extremes of body mass index for purposes of drug dosing, the eGFR should be multiplied by the estimated BMI. [facility] CHEMISTRY CO2 25 meq/L 24 - 32 05/27/2012 Normal [facility] CHEMISTRY Calcium Lvl 7.8 mg/dL 8.5 - 10.5 05/27/2012 LOW [facility] CHEMISTRY Creatinine Lvl 1.0 mg/dL 0.5 - 1.4 05/27/2012 Normal [facility] CHEMISTRY Sodium Lvl 143 meq/L 135 - 145 05/27/2012 Normal [facility] CHEMISTRY Chloride Lvl 108 meq/L 95 - 109 05/27/2012 Normal [facility] CHEMISTRY Potassium Lvl 4.0 meq/L 3.5 - 5.1 05/27/2012 Normal [facility] CHEMISTRY Glucose Lvl 98 mg/dL 70 - 99 05/27/2012 Normal 9Interpretive Data: Adult reference range values reflect the clinical guidelines of the [place] [employer]. [facility] CHEMISTRY BUN 28 mg/dL 7 - 22 05/27/2012 HI [facility] CHEMISTRY AGAP 14.0 meq/L 10.0 - 20.0 05/27/2012 Normal [facility] CHEMISTRY Phosphorus 2.8 mg/dL 2.5 - 4.5 05/27/2012 Normal [facility] CHEMISTRY Magnesium Lvl 2.0 mg/dL 1.8 - 2.4 05/27/2012 Normal [facility] HEMATOLOGY Monocytes 19.1 % 2.0 - 12.0 05/27/2012 HI [facility] HEMATOLOGY Eosinophils 3.9 % 0.0 - 4.0 05/27/2012 Normal [facility] HEMATOLOGY Blanchard Cell Slight *ABN* (05/27/2012 01:12:00) None Seen 05/27/2012 ABN [facility] HEMATOLOGY Toxic Gran Slight *ABN* (05/27/2012 01:12:00) None Seen 05/27/2012 ABN [facility] HEMATOLOGY Lymphocytes # 1.8 K/CMM 1.0 - 5.5 05/27/2012 Normal [facility] HEMATOLOGY Eosinophils # 0.4 K/CMM 0.0 - 0.5 05/27/2012 Normal [facility] HEMATOLOGY Monocytes # 1.7 K/CMM 0.0 - 0.8 05/27/2012 [facility] HEMATOLOGY Lymphocytes 19.3 % 20.0 - 40.0 05/27/2012 LOW [facility] HEMATOLOGY Elliptocyte Slight *ABN* (05/27/2012 01:12:00) None Seen 05/27/2012 ABN [facility] HEMATOLOGY Macrocyte 1+ *ABN* (05/27/2012 01:12:00) None Seen 05/27/2012 ABN [facility] HEMATOLOGY Large Plt Slight *ABN* (05/27/2012 01:12:00) None Seen 05/27/2012 ABN [facility] HEMATOLOGY Basophils # 0.1 K/CMM 0.0 - 0.2 05/27/2012 Normal [facility] HEMATOLOGY Basophils 0.7 % 0.0 - 1.0 05/27/2012 Normal [facility] HEMATOLOGY Segs-Bands # 5.2 K/CMM 1.5 - 8.1 05/27/2012 Normal [facility] HEMATOLOGY Segs 57.0 % 45.0 - 75.0 05/27/2012 Normal [facility] HEMATOLOGY INR 1.13 0.85 - 1.17 05/27/2012 Normal 15Interpretive Data: RECOMMENDED RANGES FOR PROTIME INR: 2.0-3.0 for most medical and surgical thromboembolic states. 2.5-3.5 for artificial heart valves and recurrent embolism. INR SHOULD BE USED ONLY FOR PATIENTS ON STABLE ANTICOAGULANT THERAPY. [facility] HEMATOLOGY PTT 26.9 s 22.9 - 35.8 05/27/2012 Normal 18Interpretive Data: Heparin Therapeutic Range: 57 - 92 Seconds [facility] HEMATOLOGY PT 14.7 s 12.0 - 14.7 05/27/2012 Normal [facility] HEMATOLOGY Hgb 11.0 g/dL 14.0 - 18.0 05/27/2012 LOW [facility] HEMATOLOGY RBC 3.12 M/CMM 4.70 - 6.10 05/27/2012 LOW [facility] HEMATOLOGY WBC 9.1 K/CMM 3.7 - 10.4 05/27/2012 Normal [facility] HEMATOLOGY MPV 11.0 fL 7.4 - 10.4 05/27/2012 [facility] HEMATOLOGY Platelet 114 K/CMM 133 - 450 05/27/2012 LOW [facility] HEMATOLOGY MCV 101.4 fL 80.0 - 94.0 05/27/2012 [facility] HEMATOLOGY MCH 35.3 pg 27.0 - 31.0 05/27/2012 [facility] HEMATOLOGY MCHC 34.8 g/dL 32.0 - 36.0 05/27/2012 Normal [facility] HEMATOLOGY RDW 14.3 % 11.5 - 14.5 05/27/2012 Normal [facility] HEMATOLOGY Hct 31.6 % 42.0 - 54.0 05/27/2012 LOW [facility] CHEMISTRY CK MB Index 3.5 0.0 - 2.5 05/27/2012 [facility] CHEMISTRY CK MB 2.9 ng/mL 0.5 - 3.6 05/27/2012 Normal [facility] CHEMISTRY Troponin-I 0.29 ng/mL 0.00 - 0.40 05/27/2012 Normal [facility] CHEMISTRY Troponin-T 0.066 ng/mL 0.000 - 0.100 05/27/2012 Normal [facility] CHEMISTRY Total CK 82 unit/L 12 - 191 05/27/2012 Normal [facility] CHEMISTRY BNP 234 pg/mL <=100 05/27/2012 HI 12Interpretive Data: Elevated results are in line with increasing severity of congestive heart failure. Minor elevations between 100 and 300 may be seen with Myocardial Ischemia, Sodium retaining drugs, and compensated/treated heart failure. [facility] CHEMISTRY Magnesium Lvl 2.4 mg/dL 1.8 - 2.4 05/27/2012 Normal [facility] CHEMISTRY AGAP 9.2 meq/L 10.0 - 20.0 05/27/2012 LOW [facility] CHEMISTRY eGFR 62 mL/min/1.73m2 05/27/2012 NA 7Result Comment: The eGFR is calculated using the CKD-EPI formula. In most young, healthy individuals the eGFR will be >90 mL/min/1.73m2. The eGFR declines with age. An eGFR of 60-89 may be normal in some populations, particularly the elderly, for whom the CKD-EPI formula has not been extensively validated. Use of the eGFR is not recommended in the following populations: Individuals with unstable creatinine concentrations, including patients and those with serious co-morbid conditions. Patients with extremes in muscle mass or diet. The data above are obtained from the National Kidney Disease Education Program (NKDEP) which additionally recommends that when the eGFR is used in patients with extremes of body mass index for purposes of drug dosing, the eGFR should be multiplied by the estimated BMI. [facility] CHEMISTRY Calcium Lvl 8.7 mg/dL 8.5 - 10.5 05/27/2012 Normal [facility] CHEMISTRY CO2 29 meq/L 24 - 32 05/27/2012 Normal [facility] CHEMISTRY Chloride Lvl 103 meq/L 95 - 109 05/27/2012 Normal [facility] CHEMISTRY Creatinine Lvl 1.1 mg/dL 0.5 - 1.4 05/27/2012 Normal [facility] CHEMISTRY Glucose Lvl 125 mg/dL 70 - 99 05/27/2012 HI 10Interpretive Data: Adult reference range values reflect the clinical guidelines of the [place] [employer]. [facility] CHEMISTRY Sodium Lvl 137 meq/L 135 - 145 05/27/2012 Normal [facility] CHEMISTRY BUN 30 mg/dL 7 - 22 05/27/2012 HI [facility] CHEMISTRY Potassium Lvl 4.2 meq/L 3.5 - 5.1 05/27/2012 Normal [facility] CHEMISTRY CK MB Index 3.2 0.0 - 2.5 05/27/2012 [facility] CHEMISTRY Troponin-I 0.26 ng/mL 0.00 - 0.40 05/27/2012 Normal [facility] CHEMISTRY Total CK 80 unit/L 12 - 191 05/27/2012 Normal [facility] CHEMISTRY CK MB 2.6 ng/mL 0.5 - 3.6 05/27/2012 Normal [facility] HEMATOLOGY MCV 101.2 fL 80.0 - 94.0 05/27/2012 [facility] HEMATOLOGY MCH 35.0 pg 27.0 - 31.0 05/27/2012 [facility] HEMATOLOGY RDW 14.0 % 11.5 - 14.5 05/27/2012 Normal [facility] HEMATOLOGY MCHC 34.6 g/dL 32.0 - 36.0 05/27/2012 [facility] HEMATOLOGY Hct 34.8 % 42.0 - 54.0 05/27/2012 [facility] HEMATOLOGY MPV 10.2 fL 7.4 - 10.4 05/27/2012 Normal [facility] HEMATOLOGY Platelet 120 K/CMM 133 - 450 05/27/2012 [facility] HEMATOLOGY WBC 11.9 K/CMM 3.7 - 10.4 05/27/2012 [facility] HEMATOLOGY RBC 3.44 M/CMM 4.70 - 6.10 05/27/2012 [facility] HEMATOLOGY Hgb 12.1 g/dL 14.0 - 18.0 05/27/2012 [facility] HEMATOLOGY Bands 1.0 % 0.0 - 11.0 05/27/2012 Normal [facility] HEMATOLOGY Segs 71.0 % 45.0 - 75.0 05/27/2012 Normal [facility] HEMATOLOGY Lymphocytes 18.0 % 20.0 - 40.0 05/27/2012 [facility] HEMATOLOGY Eosinophils 3.0 % 0.0 - 4.0 05/27/2012 [facility] HEMATOLOGY Monocytes 7.0 % 2.0 - 12.0 05/27/2012 Normal [facility] HEMATOLOGY Eosinophils # 0.4 K/CMM 0.0 - 0.5 05/27/2012 Normal [facility] HEMATOLOGY RBC Morph Normal (05/26/2012 18:41:00) 05/27/2012 Normal [facility] HEMATOLOGY Tot Cell Ct 100 05/27/2012 NA [facility] HEMATOLOGY Atypical Lymphs 0.0 % <=0.0 05/27/2012 Normal [facility] HEMATOLOGY Plt Morph Normal (05/26/2012 18:41:00) 05/27/2012 Normal [facility] HEMATOLOGY Lymphocytes # 2.1 K/CMM 1.0 - 5.5 05/27/2012 Normal [facility] HEMATOLOGY Monocytes # 0.8 K/CMM 0.0 - 0.8 05/27/2012 Normal [facility] HEMATOLOGY Segs-Bands # 8.6 K/CMM 1.5 - 8.1 05/27/2012 HI [facility] CHEMISTRY Troponin-I 0.17 ng/mL 0.00 - 0.40 05/26/2012 Normal [facility] CHEMISTRY Total CK 61 unit/L 12 - 191 05/26/2012 Normal [facility] CHEMISTRY CK MB Index 2.3 0.0 - 2.5 05/26/2012 Normal [facility] CHEMISTRY CK MB 1.4 ng/mL 0.5 - 3.6 05/26/2012 Normal [facility] CHEMISTRY BNP 130 pg/mL <=100 05/26/2012 ME 13Interpretive Data: Elevated results are in line with increasing severity of congestive heart failure. Minor elevations between 100 and 300 may be seen with Myocardial Ischemia, Sodium retaining drugs, and compensated/treated heart failure. [facility] CHEMISTRY Magnesium Lvl 1.4 mg/dL 1.8 - 2.4 05/26/2012 LOW [facility] HEMATOLOGY Large Plt Slight *ABN* (05/26/2012 12:04:00) None Seen 05/26/2012 ABN [facility] HEMATOLOGY Elliptocyte Slight *ABN* (05/26/2012 12:04:00) None Seen 05/26/2012 ABN [facility] HEMATOLOGY Macrocyte 1+ *ABN* (05/26/2012 12:04:00) None Seen 05/26/2012 ABN [facility] HEMATOLOGY Atypical Lymphs 0.0 % <=0.0 05/26/2012 Normal [facility] HEMATOLOGY Toxic Gran Slight *ABN* (05/26/2012 12:04:00) None Seen 05/26/2012 ABN [facility] HEMATOLOGY Bands 2.0 % 0.0 - 11.0 05/26/2012 Normal [facility] HEMATOLOGY PTT 46.9 s 22.9 - 35.8 05/26/2012 ME 19Interpretive Data: Heparin Therapeutic Range: 57 - 92 Seconds [facility] HEMATOLOGY PT 15.7 s 12.0 - 14.7 05/26/2012 HI [facility] HEMATOLOGY INR 1.23 0.85 - 1.17 05/26/2012 ME 16Interpretive Data: RECOMMENDED RANGES FOR PROTIME INR: 2.0-3.0 for most medical and surgical thromboembolic states. 2.5-3.5 for artificial heart valves and recurrent embolism. INR SHOULD BE USED ONLY FOR PATIENTS ON STABLE ANTICOAGULANT THERAPY. [facility] CHEMISTRY POC V O2 Sat 70.0 % 40.0 - 70.0 05/26/2012 Normal [facility] CHEMISTRY POC V HCO3 22 mmol/L 22 - 26 05/26/2012 Normal [facility] CHEMISTRY POC V BE -4 mmol/L -2-2 - 2 05/26/2012 LOW [facility] CHEMISTRY POC V Na 153 meq/L 135 - 145 05/26/2012 [facility] CHEMISTRY POC V pH 7.34 7.28 - 7.42 05/26/2012 Normal [facility] CHEMISTRY POC V PO2 39 mm[Hg] 20 - 49 05/26/2012 Normal [facility] CHEMISTRY POC V PCO2 40 mm[Hg] 38 - 52 05/26/2012 Normal [facility] CHEMISTRY POC V Temp 37.0 Betty 05/26/2012 NA [facility] CHEMISTRY POC V Hct 39.0 % 42.0 - 54.0 05/26/2012 LOW [facility] CHEMISTRY POC V K 3.5 meq/L 3.5 - 5.1 05/26/2012 Normal [facility] CHEMISTRY POC V Ion Ca 1.59 mMol/L 1.16 - 1.30 05/26/2012 [facility] CHEMISTRY POC V Source GAVIN 05/26/2012 NA [facility] CHEMISTRY POC A Glu 185 mg/dL 70 - 99 05/26/2012 [facility] CHEMISTRY POC A BE -5 mMol/L -2-2 - 2 05/26/2012 LOW [facility] CHEMISTRY POC A HCO3 19 mMol/L 22 - 26 05/26/2012 LOW [facility] CHEMISTRY POC A LA 5.6 mMol/L 0.5 - 2.2 05/26/2012 [facility] CHEMISTRY POC A Ca Ion 1.06 mMol/L 1.16 - 1.30 05/26/2012 [facility] CHEMISTRY POC A K 2.6 meq/L 3.5 - 5.1 05/26/2012 CRIT [facility] CHEMISTRY POC A Hct 27.0 % 42.0 - 54.0 05/26/2012 LOW [facility] CHEMISTRY POC A Na 135 meq/L 135 - 145 05/26/2012 Normal [facility] CHEMISTRY POC A O2 Sat 100.0 % 95.0 - 100.0 05/26/2012 Normal [facility] CHEMISTRY POC A pH 7.42 7.35 - 7.45 05/26/2012 Normal [facility] CHEMISTRY POC A PCO2 29 mm[Hg] 35 - 45 05/26/2012 CRIT [facility] CHEMISTRY POC A PO2 228 mm[Hg] 80 - 100 05/26/2012 [facility] CHEMISTRY POC A Temp 37.0 Betty 05/26/2012 NA [facility] CHEMISTRY POC A Source ART 05/26/2012 [facility] CHEMISTRY POC A K 3.1 meq/L 3.5 - 5.1 05/26/2012 LOW [facility] CHEMISTRY POC A Na 136 meq/L 135 - 145 05/26/2012 Normal [facility] CHEMISTRY POC A Hct 34.0 % 42.0 - 54.0 05/26/2012 LOW [facility] CHEMISTRY POC A Ca Ion 1.06 mMol/L 1.16 - 1.30 05/26/2012 [facility] CHEMISTRY POC A LA 2.9 mMol/L 0.5 - 2.2 05/26/2012 [facility] CHEMISTRY POC A Glu 150 mg/dL 70 - 99 05/26/2012 [facility] CHEMISTRY POC A BE 3 mMol/L -2-2 - 2 05/26/2012 [facility] CHEMISTRY POC A O2 Sat 100.0 % 95.0 - 100.0 05/26/2012 Normal [facility] CHEMISTRY POC A PO2 219 mm[Hg] 80 - 100 05/26/2012 [facility] CHEMISTRY POC A HCO3 27 mMol/L 22 - 26 05/26/2012 [facility] CHEMISTRY POC A PCO2 39 mm[Hg] 35 - 45 05/26/2012 Normal [facility] CHEMISTRY POC A pH 7.45 7.35 - 7.45 05/26/2012 Normal [facility] CHEMISTRY POC A Temp 37.0 Betty 05/26/2012 [facility] CHEMISTRY POC A Source ART 05/26/2012 [facility] IMMUNOLOGY Haptoglobin 208 mg/dL 16 - 200 05/25/2012 [facility] BLOOD BANK RESULTS Antibody Scrn Positive 4 (05/25/2012 13:00:00) 05/25/2012 Normal 4Result Comment: 05/25/2012 14:09 ALEXIA "Significant Findings (Positive Antibody Screen) called to COLLIN Mora at 1409hrs by Robin Peacock [place]/NISHI. Read Back OK." Patient has unexpected antibodies. Allow extra time for additional crossmatches. [facility] BLOOD BANK RESULTS ABO/Rh A POS 05/25/2012 Unknown [facility] BLOOD BANK RESULTS AB Int Anti- Fy(a) 05/25/2012 Unknown [facility] CHEMISTRY Plasma Hemoglobin 120 mg/dL 0 - 10 05/25/2012 [facility] CHEMISTRY proBNP 1460 pg/mL 0 - 450 05/25/2012 [facility] CHEMISTRY Albumin Lvl 4.1 g/dL 3.5 - 5.0 05/25/2012 Normal [facility] CHEMISTRY B/C Ratio 33 6 - 25 05/25/2012 [facility] CHEMISTRY A/G Ratio 1.1 0.7 - 1.6 05/25/2012 Normal [facility] CHEMISTRY Globulin 3.6 g/dL 2.0 - 4.0 05/25/2012 Normal [facility] CHEMISTRY Total Protein 7.7 g/dL 6.4 - 8.4 05/25/2012 Normal [facility] CHEMISTRY AST 20 unit/L 0 - 37 05/25/2012 Normal [facility] CHEMISTRY ALT 28 unit/L 0 - 65 05/25/2012 Normal [facility] CHEMISTRY Albumin Lvl 4.1 g/dL 3.5 - 5.0 05/25/2012 Normal [facility] CHEMISTRY Alk Phos 49 unit/L 39 - 136 05/25/2012 Normal [facility] CHEMISTRY Bili Total 0.6 mg/dL 0.2 - 1.3 05/25/2012 Normal [facility] CHEMISTRY Bili Direct 0.1 mg/dL 0.0 - 0.3 05/25/2012 Normal [facility] CHEMISTRY Myoglobin 75 ng/mL 25 - 72 05/25/2012 [facility] CHEMISTRY Troponin-T 0.029 ng/mL 0.000 - 0.100 05/25/2012 Normal [facility] HEMATOLOGY Basophils # 0.1 K/CMM 0.0 - 0.2 05/25/2012 Normal [facility] HEMATOLOGY Basophils 1.1 % 0.0 - 1.0 05/25/2012 HI [facility] BLOOD BANK RESULTS FFP product Product available (05/25/2012 12:20:00) 05/25/2012 Normal [facility] BLOOD BANK RESULTS RBC product Product available (05/25/2012 12:20:00) 05/25/2012 Normal [facility] CHEMISTRY Phosphorus 3.3 mg/dL 2.5 - 4.5 02/19/2012 Normal [facility] CHEMISTRY AGAP 16.0 meq/L 10.0 - 20.0 02/19/2012 Normal [facility] CHEMISTRY Calcium Lvl 8.7 mg/dL 8.5 - 10.5 02/19/2012 Normal [facility] CHEMISTRY CO2 28 meq/L 24 - 32 02/19/2012 Normal [facility] CHEMISTRY Creatinine Lvl 1.0 mg/dL 0.5 - 1.4 02/19/2012 Normal [facility] CHEMISTRY Sodium Lvl 143 meq/L 135 - 145 02/19/2012 Normal [facility] CHEMISTRY Potassium Lvl 4.0 meq/L 3.5 - 5.1 02/19/2012 Normal [facility] CHEMISTRY Chloride Lvl 103 meq/L 95 - 109 02/19/2012 Normal [facility] CHEMISTRY BUN 27 mg/dL 7 - 22 02/19/2012 [facility] CHEMISTRY Glucose Lvl 100 mg/dL 70 - 99 02/19/2012 [place] 2Interpretive Data: Adult reference range values reflect the clinical guidelines of the [place] [employer]. [facility] CHEMISTRY Magnesium Lvl 1.9 mg/dL 1.8 - 2.4 02/19/2012 Normal [facility] CHEMISTRY Troponin-I 0.06 ng/mL 0.00 - 0.40 02/19/2012 Normal [facility] CHEMISTRY BNP 309 pg/mL <=100 02/19/2012 [place] 5Interpretive Data: Elevated results are in line with increasing severity of congestive heart failure. Minor elevations between 100 and 300 may be seen with Myocardial Ischemia, Sodium retaining drugs, and compensated/treated heart failure. [facility] CHEMISTRY Troponin-T 0.011 ng/mL 0.000 - 0.100 02/19/2012 Normal [facility] CHEMISTRY Total CK 57 U/L 12 - 191 02/19/2012 Normal [facility] CHEMISTRY Bili Total 0.6 mg/dL 0.2 - 1.3 02/19/2012 Normal [facility] CHEMISTRY ALT 21 U/L 0 - 65 02/19/2012 Normal [facility] CHEMISTRY Bili Direct 0.1 mg/dL 0.0 - 0.3 02/19/2012 Normal [facility] CHEMISTRY Alk Phos 41 U/L 39 - 136 02/19/2012 Normal [facility] CHEMISTRY Albumin Lvl 3.2 g/dL 3.5 - 5.0 02/19/2012 LOW [facility] CHEMISTRY Total Protein 6.4 g/dL 6.4 - 8.4 02/19/2012 Normal [facility] CHEMISTRY AST 18 U/L 0 - 37 02/19/2012 Normal [facility] CHEMISTRY A/G Ratio 1.0 0.7 - 1.6 02/19/2012 Normal [facility] CHEMISTRY Bili Indirect 0.5 mg/dL 0.0 - 1.0 02/19/2012 Normal [facility] CHEMISTRY Globulin 3.2 g/dL 2.0 - 4.0 02/19/2012 Normal [facility] HEMATOLOGY INR 1.09 0.85 - 1.17 02/19/2012 Normal 7Interpretive Data: RECOMMENDED RANGES FOR PROTIME INR: 2.0-3.0 for most medical and surgical thromboembolic states. 2.5-3.5 for artificial heart valves and recurrent embolism. INR SHOULD BE USED ONLY FOR PATIENTS ON STABLE ANTICOAGULANT THERAPY. [facility] HEMATOLOGY PT 14.3 s 12.0 - 14.7 02/19/2012 Normal [facility] HEMATOLOGY PTT 27.9 s 22.9 - 35.8 02/19/2012 Normal 10Interpretive Data: Heparin Therapeutic Range: 57 - 92 Seconds [facility] HEMATOLOGY MCHC 33.6 g/dL 32.0 - 36.0 02/19/2012 Normal [facility] HEMATOLOGY Hgb 12.5 g/dL 14.0 - 18.0 02/19/2012 LOW [facility] HEMATOLOGY MCV 100.9 fL 80.0 - 94.0 02/19/2012 [facility] HEMATOLOGY Hct 37.2 % 42.0 - 54.0 02/19/2012 LOW [facility] HEMATOLOGY MCH 33.9 pg 27.0 - 31.0 02/19/2012 [facility] HEMATOLOGY RDW 13.8 % 11.5 - 14.5 02/19/2012 [facility] HEMATOLOGY MPV 10.3 fL 7.4 - 10.4 02/19/2012 [facility] HEMATOLOGY Platelet 153 K/CMM 133 - 450 02/19/2012 [facility] HEMATOLOGY RBC 3.69 M/CMM 4.70 - 6.10 02/19/2012 [facility] HEMATOLOGY WBC 9.7 K/CMM 3.7 - 10.4 02/19/2012 [facility] HEMATOLOGY Segs 58.2 % 45.0 - 75.0 02/19/2012 [facility] HEMATOLOGY Lymphocytes 19.9 % 20.0 - 40.0 02/19/2012 [facility] HEMATOLOGY Monocytes 15.5 % 2.0 - 12.0 02/19/2012 [facility] HEMATOLOGY Eosinophils 6.0 % 0.0 - 4.0 02/19/2012 [facility] HEMATOLOGY Segs-Bands # 5.6 K/CMM 1.5 - 8.1 02/19/2012 [facility] HEMATOLOGY Basophils 0.4 % 0.0 - 1.0 02/19/2012 [facility] HEMATOLOGY Lymphocytes # 1.9 K/CMM 1.0 - 5.5 02/19/2012 [facility] HEMATOLOGY Monocytes # 1.5 K/CMM 0.0 - 0.8 02/19/2012 [facility] HEMATOLOGY Eosinophils # 0.6 K/CMM 0.0 - 0.5 02/19/2012 [facility] HEMATOLOGY Basophils # 0.0 K/CMM 0.0 - 0.2 02/19/2012 [facility] HEMATOLOGY Macrocyte 1+ *ABN* (02/19/2012 03:35:00) None Seen 02/19/2012 ABN [facility] CHEMISTRY Troponin-T null 0.000 - 0.100 02/18/2012 [facility] CHEMISTRY Total CK 55 U/L - 02/18/2012 [facility] CHEMISTRY Troponin-T null 0.000 - 0.100 02/18/2012 Normal [facility] CHEMISTRY Total CK 55 U/L 12 - 02/18/2012 [facility] CHEMISTRY Myoglobin 55 ng/mL 25 - 72 02/18/2012 Normal [facility] CHEMISTRY Phosphorus 3.4 mg/dL 2.5 - 4.5 02/18/2012 Normal [facility] CHEMISTRY Magnesium Lvl 1.9 mg/dL 1.8 - 2.4 02/18/2012 Normal [facility] CHEMISTRY Potassium Lvl 3.6 meq/L 3.5 - 5.1 02/18/2012 Normal [facility] CHEMISTRY CO2 22 meq/L 24 - 32 02/18/2012 LOW [facility] CHEMISTRY Sodium Lvl 143 meq/L 135 - 145 02/18/2012 Normal [facility] CHEMISTRY Chloride Lvl 104 meq/L 95 - 109 02/18/2012 Normal [facility] CHEMISTRY Calcium Lvl 8.2 mg/dL 8.5 - 10.5 02/18/2012 [facility] CHEMISTRY AGAP 20.6 meq/L 10.0 - 20.0 02/18/2012 [facility] CHEMISTRY BUN 29 mg/dL 7 - 22 02/18/2012 [facility] CHEMISTRY Glucose Lvl 177 mg/dL 70 - 99 02/18/2012 [place] 3Interpretive Data: Adult reference range values reflect the clinical guidelines of the [place] [employer]. [facility] CHEMISTRY Creatinine Lvl 1.0 mg/dL 0.5 - 1.4 02/18/2012 Normal [facility] HEMATOLOGY Segs 84.1 % 45.0 - 75.0 02/18/2012 [facility] HEMATOLOGY Lymphocytes 6.8 % 20.0 - 40.0 02/18/2012 LOW [facility] HEMATOLOGY Segs-Bands # 12.9 K/CMM 1.5 - 8.1 02/18/2012 [facility] HEMATOLOGY Lymphocytes # 1.0 K/CMM 1.0 - 5.5 02/18/2012 [facility] HEMATOLOGY Basophils 0.3 % 0.0 - 1.0 02/18/2012 [facility] HEMATOLOGY Monocytes 4.8 % 2.0 - 12.0 02/18/2012 [facility] HEMATOLOGY Eosinophils 4.0 % 0.0 - 4.0 02/18/2012 [facility] HEMATOLOGY Monocytes # 0.7 K/CMM 0.0 - 0.8 02/18/2012 [facility] HEMATOLOGY Eosinophils # 0.6 K/CMM 0.0 - 0.5 02/18/2012 [facility] HEMATOLOGY Basophils # 0.0 K/CMM 0.0 - 0.2 02/18/2012 Normal [facility] HEMATOLOGY Macrocyte 1+ *ABN* (02/18/2012 11:35:00) None Seen 02/18/2012 ABN [facility] HEMATOLOGY Plt Morph Normal (02/18/2012 11:35:00) 02/18/2012 Normal [facility] HEMATOLOGY PTT 30.3 s 22.9 - 35.8 02/18/2012 Normal 11Interpretive Data: Heparin Therapeutic Range: 57 - 92 Seconds [facility] HEMATOLOGY PT 15.1 s 12.0 - 14.7 02/18/2012 [facility] HEMATOLOGY INR 1.17 0.85 - 1.17 02/18/2012 Normal 8Interpretive Data: RECOMMENDED RANGES FOR PROTIME INR: 2.0-3.0 for most medical and surgical thromboembolic states. 2.5-3.5 for artificial heart valves and recurrent embolism. INR SHOULD BE USED ONLY FOR PATIENTS ON STABLE ANTICOAGULANT THERAPY. [facility] HEMATOLOGY MCHC 33.2 g/dL 32.0 - 36.0 02/18/2012 Normal [facility] HEMATOLOGY MCV 100.7 fL 80.0 - 94.0 02/18/2012 [facility] HEMATOLOGY Hgb 12.5 g/dL 14.0 - 18.0 02/18/2012 [facility] HEMATOLOGY MCH 33.5 pg 27.0 - 31.0 02/18/2012 [facility] HEMATOLOGY Hct 37.7 % 42.0 - 54.0 02/18/2012 [facility] HEMATOLOGY MPV 10.6 fL 7.4 - 10.4 02/18/2012 [facility] HEMATOLOGY RDW 13.9 % 11.5 - 14.5 02/18/2012 Normal [facility] HEMATOLOGY Platelet 157 K/CMM 133 - 450 02/18/2012 Normal [facility] HEMATOLOGY RBC 3.74 M/CMM 4.70 - 6.10 02/18/2012 [facility] HEMATOLOGY WBC 15.4 K/CMM 3.7 - 10.4 02/18/2012 [facility] CHEMISTRY POC V O2 Sat 61.0 % 40.0 - 70.0 02/18/2012 Normal [facility] CHEMISTRY POC V BE -1 mmol/L -2-2 - 2 02/18/2012 Normal [facility] CHEMISTRY POC V HCO3 24 mmol/L 22 - 26 02/18/2012 Normal [facility] CHEMISTRY POC V pH 7.36 7.28 - 7.42 02/18/2012 Normal [facility] CHEMISTRY POC V PO2 33 mm[Hg] 20 - 49 02/18/2012 Normal [facility] CHEMISTRY POC V PCO2 43 mm[Hg] 38 - 52 02/18/2012 Normal [facility] CHEMISTRY POC V Na 139 meq/L 135 - 145 02/18/2012 Normal [facility] CHEMISTRY POC V K 3.2 meq/L 3.5 - 5.1 02/18/2012 LOW [facility] CHEMISTRY POC V Source GAVIN 02/18/2012 NA [facility] CHEMISTRY POC V Temp 37.0 Betty 02/18/2012 NA [facility] CHEMISTRY POC V Ion Ca 1.13 mMol/L 1.16 - 1.30 02/18/2012 LOW [facility] CHEMISTRY POC V Hct 40.0 % 42.0 - 54.0 02/18/2012 LOW [facility] CHEMISTRY POC A Hct 39.0 % 42.0 - 54.0 02/18/2012 LOW [facility] CHEMISTRY POC A Na 138 meq/L 135 - 145 02/18/2012 Normal [facility] CHEMISTRY POC A K 2.9 meq/L 3.5 - 5.1 02/18/2012 CRIT [facility] CHEMISTRY POC A O2 Sat 100.0 % 95.0 - 100.0 02/18/2012 Normal [facility] CHEMISTRY POC A Temp 37.0 Betty 02/18/2012 NA [facility] CHEMISTRY POC A pH 7.40 7.35 - 7.45 02/18/2012 Normal [facility] CHEMISTRY POC A PO2 192 mm[Hg] 80 - 100 02/18/2012 HI [facility] CHEMISTRY POC A Ca Ion 1.04 mMol/L 1.16 - 1.30 02/18/2012 LOW [facility] CHEMISTRY POC A PCO2 39 mm[Hg] 35 - 45 02/18/2012 Normal [facility] CHEMISTRY POC A HCO3 24 mMol/L 22 - 26 02/18/2012 Normal [facility] CHEMISTRY POC A BE 0 mMol/L -2-2 - 2 02/18/2012 Normal [facility] CHEMISTRY POC A LA 2.8 mMol/L 0.5 - 2.2 02/18/2012 [facility] CHEMISTRY POC A Glu 154 mg/dL 70 - 99 02/18/2012 [facility] CHEMISTRY POC A Mode GA 02/18/2012 NA [facility] CHEMISTRY POC A Source ART 02/18/2012 NA [facility] CHEMISTRY POC V O2 Sat 60.0 % 40.0 - 70.0 02/18/2012 Normal [facility] CHEMISTRY POC V Mode GA 02/18/2012 NA [facility] CHEMISTRY POC V Glu 82 mg/dL 70 - 99 02/18/2012 Normal [facility] CHEMISTRY POC V BE -1 mmol/L -2-2 - 2 02/18/2012 Normal [facility] CHEMISTRY POC V PCO2 36 mm[Hg] 38 - 52 02/18/2012 LOW [facility] CHEMISTRY POC V PO2 31 mm[Hg] 20 - 49 02/18/2012 Normal [facility] CHEMISTRY POC V pH 7.41 7.28 - 7.42 02/18/2012 Normal [facility] CHEMISTRY POC V Ion Ca 1.60 mMol/L 1.16 - 1.30 02/18/2012 CRIT [facility] CHEMISTRY POC V K 2.7 meq/L 3.5 - 5.1 02/18/2012 CRIT [facility] CHEMISTRY POC V HCO3 23 mmol/L 22 - 26 02/18/2012 Normal [facility] CHEMISTRY POC V Temp 37.0 Betty 02/18/2012 [facility] CHEMISTRY POC V Hct 43.0 % 42.0 - 54.0 02/18/2012 Normal [facility] CHEMISTRY POC V Na 172 meq/L 135 - 145 02/18/2012 [facility] CHEMISTRY POC V LA 1.1 mMol/L 0.5 - 2.2 02/18/2012 Normal [facility] CHEMISTRY POC V Source GAVIN 02/18/2012 [facility] CHEMISTRY AGAP 15.3 meq/L 10.0 - 20.0 02/18/2012 Normal [facility] CHEMISTRY Chloride Lvl 104 meq/L 95 - 109 02/18/2012 Normal [facility] CHEMISTRY Potassium Lvl 4.3 meq/L 3.5 - 5.1 02/18/2012 Normal [facility] CHEMISTRY Sodium Lvl 140 meq/L 135 - 145 02/18/2012 Normal [facility] CHEMISTRY Creatinine Lvl 1.0 mg/dL 0.5 - 1.4 02/18/2012 Normal [facility] CHEMISTRY BUN 38 mg/dL 7 - 22 02/18/2012 [facility] CHEMISTRY Calcium Lvl 8.7 mg/dL 8.5 - 10.5 02/18/2012 Normal [facility] CHEMISTRY CO2 25 meq/L 24 - 32 02/18/2012 Normal [facility] CHEMISTRY Glucose Lvl 85 mg/dL 70 - 99 02/18/2012 Normal 4Interpretive Data: Adult reference range values reflect the clinical guidelines of the [place] [employer]. [facility] CHEMISTRY Phosphorus 3.5 mg/dL 2.5 - 4.5 02/18/2012 Normal [facility] CHEMISTRY Magnesium Lvl 2.0 mg/dL 1.8 - 2.4 02/18/2012 Normal [facility] CHEMISTRY Myoglobin 56 ng/mL 25 - 72 02/18/2012 Normal [facility] CHEMISTRY Troponin-I 0.07 ng/mL 0.00 - 0.40 02/18/2012 Normal [facility] CHEMISTRY Chol 170 mg/dL 120 - 200 02/18/2012 Normal [facility] CHEMISTRY Trig 190 mg/dL 0 - 200 02/18/2012 Normal [facility] CHEMISTRY HDL 23 mg/dL >=35 02/18/2012 LOW [facility] CHEMISTRY LDL 109 mg/dL 0 - 129 02/18/2012 Normal [facility] CHEMISTRY CHD Risk 7.39 4.00 - 7.30 02/18/2012 [facility] HEMATOLOGY RDW 14.2 % 11.5 - 14.5 02/18/2012 Normal [facility] HEMATOLOGY MPV 10.2 fL 7.4 - 10.4 02/18/2012 Normal [facility] HEMATOLOGY Platelet 181 K/CMM 133 - 450 02/18/2012 Normal [facility] HEMATOLOGY MCH 33.5 pg 27.0 - 31.0 02/18/2012 [facility] HEMATOLOGY MCHC 33.1 g/dL 32.0 - 36.0 02/18/2012 Normal [facility] HEMATOLOGY Hct 40.3 % 42.0 - 54.0 02/18/2012 [facility] HEMATOLOGY MCV 101.3 fL 80.0 - 94.0 02/18/2012 [facility] HEMATOLOGY WBC 8.0 K/CMM 3.7 - 10.4 02/18/2012 Normal [facility] HEMATOLOGY RBC 3.97 M/CMM 4.70 - 6.10 02/18/2012 [facility] HEMATOLOGY Hgb 13.3 g/dL 14.0 - 18.0 02/18/2012 [facility] HEMATOLOGY PTT 27.2 s 22.9 - 35.8 02/18/2012 Normal 12Interpretive Data: Heparin Therapeutic Range: 57 - 92 Seconds [facility] HEMATOLOGY PT 13.7 s 12.0 - 14.7 02/18/2012 [facility] HEMATOLOGY INR 1.03 0.85 - 1.17 02/18/2012 Normal 9Interpretive Data: RECOMMENDED RANGES FOR PROTIME INR: 2.0-3.0 for most medical and surgical thromboembolic states. 2.5-3.5 for artificial heart valves and recurrent embolism. INR SHOULD BE USED ONLY FOR PATIENTS ON STABLE ANTICOAGULANT THERAPY. [facility] HEMATOLOGY Lymphocytes # 2.3 K/CMM 1.0 - 5.5 02/18/2012 [facility] HEMATOLOGY Monocytes # 1.1 K/CMM 0.0 - 0.8 02/18/2012 [facility] HEMATOLOGY Basophils # 0.0 K/CMM 0.0 - 0.2 02/18/2012 [facility] HEMATOLOGY Eosinophils # 0.9 K/CMM 0.0 - 0.5 02/18/2012 [facility] HEMATOLOGY Macrocyte 1+ *ABN* (02/18/2012 02:37:00) None Seen 02/18/2012 ABN [facility] HEMATOLOGY Lymphocytes 29.2 % 20.0 - 40.0 02/18/2012 [facility] HEMATOLOGY Monocytes 13.5 % 2.0 - 12.0 02/18/2012 [facility] HEMATOLOGY Basophils 0.4 % 0.0 - 1.0 02/18/2012 [facility] HEMATOLOGY Segs-Bands # 3.7 K/CMM 1.5 - 8.1 02/18/2012 [facility] HEMATOLOGY Eosinophils 11.4 % 0.0 - 4.0 02/18/2012 [facility] HEMATOLOGY Segs 45.5 % 45.0 - 75.0 02/18/2012 Normal [facility] BLOOD BANK RESULTS FFP product Product available (02/17/2012 19:09:00) 02/18/2012 Normal [facility] BLOOD BANK RESULTS RBC product Product available (02/17/2012 19:09:00) 02/18/2012 Normal [facility] BLOOD BANK RESULTS Platelet product Product available (02/17/2012 19:09:00) 02/18/2012 Normal [facility] CHEMISTRY Troponin-I 0.05 ng/mL 0.00 - 0.40 02/17/2012 Normal [facility] CHEMISTRY BNP 359 pg/mL <=100 02/17/2012 [place] 6Interpretive Data: Elevated results are in line with increasing severity of congestive heart failure. Minor elevations between 100 and 300 may be seen with Myocardial Ischemia, Sodium retaining drugs, and compensated/treated heart failure. [facility] CHEMISTRY Plasma Hemoglobin 60 mg/dL 0 - 10 02/17/2012 HI [facility] CHEMISTRY Albumin Lvl 3.9 g/dL 3.5 - 5.0 02/17/2012 Normal [facility] CHEMISTRY Bili Direct 0.1 mg/dL 0.0 - 0.3 02/17/2012 Normal [facility] CHEMISTRY Total Protein 7.9 g/dL 6.4 - 8.4 02/17/2012 Normal [facility] CHEMISTRY Bili Total 0.4 mg/dL 0.2 - 1.3 02/17/2012 Normal [facility] CHEMISTRY AST 18 U/L 0 - 37 02/17/2012 Normal [facility] CHEMISTRY ALT 28 U/L 0 - 65 02/17/2012 Normal [facility] CHEMISTRY Albumin Lvl 3.9 g/dL 3.5 - 5.0 02/17/2012 Normal [facility] CHEMISTRY Alk Phos 55 U/L 39 - 136 02/17/2012 Normal [facility] CHEMISTRY Globulin 4.0 g/dL 2.0 - 4.0 02/17/2012 Normal [facility] CHEMISTRY Bili Indirect 0.3 mg/dL 0.0 - 1.0 02/17/2012 Normal [facility] CHEMISTRY A/G Ratio 1.0 0.7 - 1.6 02/17/2012 Normal [facility] CHEMISTRY A/G Ratio 1.0 0.7 - 1.6 02/17/2012 Normal [facility] CHEMISTRY B/C Ratio 37 6 - 25 02/17/2012 [facility] CHEMISTRY Globulin 4.0 g/dL 2.0 - 4.0 02/17/2012 Normal [facility] CHEMISTRY Bili Total 0.4 mg/dL 0.2 - 1.3 02/17/2012 Normal [facility] CHEMISTRY AST 18 U/L 0 - 37 02/17/2012 Normal [facility] CHEMISTRY Total Protein 7.9 g/dL 6.4 - 8.4 02/17/2012 Normal [facility] CHEMISTRY Alk Phos 55 U/L 39 - 136 02/17/2012 Normal [facility] CHEMISTRY Albumin Lvl 3.9 g/dL 3.5 - 5.0 02/17/2012 Normal [facility] CHEMISTRY ALT 28 U/L 0 - 65 02/17/2012 Normal [facility] IMMUNOLOGY Haptoglobin 233 mg/dL 16 - 200 02/17/2012 [facility] BLOOD BANK RESULTS ABO/Rh A POS 02/17/2012 Unknown [facility] BLOOD BANK RESULTS Antibody Scrn Positive 1 (02/17/2012 15:00:00) 02/17/2012 Normal 1Result Comment: 02/17/2012 16:42 TOCARRIERIS "Significant Findings of Positive Antibody Screen called to Chuyita at 1641 02/17/12 by Yulia Salvador. Read Back OK" [facility] BLOOD BANK RESULTS FFP product Product available (02/17/2012 15:00:00) 02/17/2012 Normal [facility] BLOOD BANK RESULTS RBC product Product available (02/17/2012 15:00:00) 02/17/2012 Normal [facility] BLOOD BANK RESULTS AB Int Anti- Fy(a) 02/17/2012 Unknown [facility] Vital Signs Vital Sign Value Date Comments Source Height 177.8 cm 01/23/2015 [facility] Weight 85.455 01/23/2015 [facility] BMI Calculated 27.03 01/23/2015 [facility] Diastolic (mm Hg) 48 05/28/2012 [facility] Systolic (mm Hg) 115 05/28/2012 [facility] Diastolic (mm Hg) 64 05/28/2012 [facility] Systolic (mm Hg) 125 05/28/2012 [facility] Systolic (mm Hg) 114 05/28/2012 [facility] Diastolic (mm Hg) 57 05/28/2012 [facility] Temperature Oral (F) 97.6 F 05/28/2012 [facility] Temperature Oral (F) 97.8 F 05/28/2012 [facility] Temperature Oral (F) 97.6 F 05/28/2012 [facility] Respitory Rate 18 05/26/2012 [facility] Respitory Rate 20 05/26/2012 [facility] Respitory Rate 20 05/26/2012 [facility] Height 177.80 cm 05/25/2012 [facility] Weight 89.801 05/25/2012 [facility] Weight 89.801 05/25/2012 [facility] Height 177.80 cm 05/25/2012 [facility] Diastolic (mm Hg) 56 02/19/2012 [facility] Systolic (mm Hg) 110 02/19/2012 [facility] Respitory Rate 24 02/19/2012 [facility] Systolic (mm Hg) 99 02/19/2012 [facility] Diastolic (mm Hg) 57 02/19/2012 [facility] Respitory Rate 22 02/19/2012 [facility] Systolic (mm Hg) 100 02/19/2012 [facility] Diastolic (mm Hg) 64 02/19/2012 [facility] Respitory Rate 24 02/19/2012 [facility] Temperature Oral (F) 98.2 F 02/19/2012 [facility] Temperature Oral (F) 98.8 F 02/19/2012 [facility] Temperature Oral (F) 96.2 F 02/17/2012 [facility] Heart Rate 54 02/17/2012 [facility] Weight 85.000 02/17/2012 [facility] Height 177.80 cm 02/17/2012 [facility] Encounters Location Location Details Encounter Type Encounter Number Reason For Visit Attending Provider ADM Date DC Date Status Source [facility] Inpatient [id number] SEVERE AORTIC STENOSIS, CHF PERNELL MEDLEY 02/17/2012 02/19/2012 Active [facility] Inpatient [id number] SEVERE AORTIC STENOSIS, ACUTEON CHRONIC CHF PERNELL MEDLEY 05/25/2012 05/28/2012 Active [facility] TH [id number] CARDIAC REHAB MICAH ANDREA 07/19/2012 Active [facility] Outpatient [id number] Lobito anival 01/23/2015 01/24/[address] [facility] [place] [facility] [id number] Pernell Morrisoning 02/01/2015 02/02/2015 SHAILESH Rojas [facility] Out[facility] [place] [facility] [id number] [facility] 04/14[facility]2016 [facility] [id number] ANGINA MICAH ANDREA [facility] Procedures Procedure Code Date Perfomer Comments Source CABG - Coronary artery bypass graft [id number] 04/12/2009 SHAILESH Rojas CABG - Coronary artery bypass graft [id number] 04/12/2009 [place]AILESH [place] CABG - Coronary artery bypass graft [id number] 04/12/2009 [facility]
--- OUTSIDE RECORDS SUMMARY | 2018-08-24 17:42 | XMS REPORT | Summary of Care ---
Author Author Prashant Hatch, Nany Jang Organization Unknown Address [facility] Phone Unavailable Care Team Providers Care Hard Tile Setter Apprentice Name Role Phone CATA Bain, GELACIO Unavailable Unavailable SEAN Bain, NATE Unavailable Unavailable Prashant Hatch, Nany Jang Unavailable Unavailable ZO Bain, LOBITO Unavailable Unavailable IBAN Bain, MOHAMMASobeida Unavailable Unavailable ZAID Bain, REBECCA Unavailable Unavailable ADRIANO HAMILTON [place], RICKY GRECO Unavailable Unavailable ADRIANO Bain, RICKY Unavailable Unavailable Zo HAMILTON, Lobito Unavailable Unavailable GALINDO HAMILTON [place], CULLEN Ramirez Unavailable Unavailable CATA HAMILTON [place], GELACIO Jurado Unavailable Unavailable Unavailable Unavailable Functional Status Name Dates Details Functional status health issues are not documented Status: Name Dates Details Cognitive status health issues are not documented Status: Problems Name Dates Details Osteoarthritis of hip (715.95, M16.9) Status: Active Gout (274.9, M10.9) Status: Active 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.02, T82.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) Status: Active Tinea pedis of both feet (110.4, B35.3) Status: Active Knee osteoarthritis (715.36, M17.10) Status: Active Edema (782.3, R60.9) Status: Active 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, 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) Status: Active Arteriosclerotic coronary artery disease (414.00, I25.10) Status: Active Aortic valve stenosis, nonrheumatic (424.1, I35.0) Status: Active Ischemic cardiomyopathy (414.8, I25.5) Status: Active Cognitive impairment (294.9, R41.89) Status: Active BMI 30.0-30.9,adult (V85.30, Z68.30) Status: Active Shoulder pain, right (719.41, M25.511) Status: Active Need for immunization against influenza (V04.81, Z23) Status: Active Annual physical exam (V70.0, Z00.00) Status: Active Advance directive discussed with patient (V65.49, Z71.89) Status: Active Age-related cognitive decline (294.9, R41.81) Status: Active Chronic kidney disease, stage III (moderate) (585.3, N18.3) Status: Active Chronic systolic congestive heart failure, NYHA class 3 (428.22, I50.22) Status: Active Essential (primary) hypertension (401.9, I10) Status: Active Hyperlipidemia (272.4, E78.5) Status: Active ICD (implantable cardioverter-defibrillator) in place (V45.02, Z95.810) Status: Active 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 CHACHO FERRERA M.D. * Start : 12-Jan-2012 Active DME [employer]. 781.2, 728.87, 728.88Hoverround MPV5, 18" seat + seat height spac er * Quantity: 1 Refills: 0 NATE ESTRADA M.D. * Start : 01-Jan-2014 Active Carvedilol 12.5 MG Oral Tablet TAKE ONE TABLET BY MOUTH EVERY 12 HOURS * Quantity: 180 Refills: 2 LOBITO BROWNING M.D. * Start : 29-Jun-2018 Active Furosemide 40 MG Oral Tablet TAKE 1 TABLET TWICE DAILY. * Quantity: 180 Refills: 1 GELACIO IVY M.D. * Start : 02-Feb-2014 Active Losartan Potassium 25 MG Oral Tablet TAKE 1 TABLET DAILY DIRECTED. * Quantity: 90 Refills: 1 GELACIO IVY M.D. * Start : 07-Oct-2015 Active Terbinafine HCl - 1 % External Cream APPLY TO AFFECTED AREA(S) 2-3 TIMES DAILY ( TO FEET , ALL TOENAILS, AND AROUND T HE NAIL BEDS * Quantity: 1 Refills: 2 REBECCA MAR M.D. * Start : 17-Sep-2017 Active 15 GM Tube Donepezil HCl - 10 MG Oral Tablet TAKE 1 TABLET BEDTIME * Quantity: 90 Refills: 1 GELACIO IVY M.D. * Start : 31-Jul-2016 Active Ezetimibe 10 MG Oral Tablet TAKE 1 TABLET AT BEDTIME * Quantity: 90 Refills: 1 GELACIO IVY M.D. * Start : 13-Aug-2017 Active Shingrix 50 MCG Intramuscular Suspension Reconstituted Administer at pharmacy as directed * Quantity: 1 Refills: 1 GELACIO IVY M.D. * Start : 10-Aug-2018 End : 12-Aug-2018 Active Allergies and Adverse Reactions Name Dates Details Diclofenac Potassium TABS (Adverse Event) Status: Active Lisinopril TABS (Allergy) Status: Active NSAIDs (Allergy) Status: Active Simvastatin TABS (Adverse Event) Status: Active Statins (Allergy) Status: Active Past Medical History Name Dates Details History of Acute Myocardial Infarction (V12.59) Status: Resolved History of Annual physical exam (V70.0, Z00.00) Status: Resolved History of Apical mural thrombus (410.10, I51.3) Status: Resolved History of Cardiomyopathy, primary (425.4, I42.8) Status: Resolved History of congestive heart disease (V12.59, Z86.79) Status: Resolved History of congestive heart failure (V12.59, Z86.79) Status: Resolved History of Coronary Artery Disease (V12.59) Status: Resolved History of Encounter for Medicare annual wellness exam (V70.0, Z00.00) Status: Resolved History of Extremity pain (729.5, M79.609) Status: Resolved History of fatigue (V13.89, Z87.898) Status: Resolved History of gait disorder (V13.89, Z87.898) Status: Resolved History of hyperkalemia (V12.29, Z86.39) Status: Resolved History of hypokalemia (V12.29, Z86.39) Status: Resolved History of insomnia (V13.89, Z87.898) Status: Resolved History of nonadherence to medical treatment (V15.81, Z91.19) Status: Resolved History of Osteoarthritis (V13.4) Status: Resolved History of Other abnormality of breathing (786.09, R06.89) Status: Resolved History of palpitations (V12.59, Z87.898) Status: Resolved History of peripheral vascular disease (V12.59, Z86.79) Status: Resolved History of pneumococcal vaccination (V49.89, Z92.29) Status: Resolved History of Sacroiliitis (720.2, M46.1) Status: Resolved History of sebaceous cyst (V13.3, Z87.2) Status: Resolved History of shortness of breath (V13.89, Z87.898) Status: Resolved History of Skin macule (709.8, L98.8) Status: Resolved Procedures Procedure Dates Details History of CABG Completed History of Knee Surgery Completed History of Tonsillectomy With Adenoidectomy Completed History of Aortic Valve Replacement Completed History of Pacemaker Placement Completed Immunization Name Dates Details Pneumococcal polysaccharide vaccine, 23 valent on: 23-Jun-2007 Influenza on: 23-Jun-2007 Td on: 03-Sep-2009 Influenza on: 25-Apr-2014 Fluzone INJ Lot #: [id number] on: 14-Apr-2016 Prevnar 13 Intramuscular Suspension Lot #: [id number] on: 02-Jun-2016 Fluzone High-Dose 0.5 ML Intramuscular Suspension Prefilled Syringe Lot #: [id number] on: 06-May-2017 Fluzone High-Dose 0.5 ML Intramuscular Suspension Prefilled Syringe Lot #: [id number] on: 10-May-2018 Family History Name Dates Details Family history of Coronary Artery Disease (V17.49) Comments: Family History Status: Active Name Dates Details Family history of Hypertension (V17.49) Status: Active Social History Name Dates Details - Status: Name Dates Details Former smoker Vital Signs Date Test Result Details [id number] BP Systolic 120 mm[Hg] Status: Comments: Location: RUE; Position: Sitting BP Diastolic 51 mm[Hg] Status: Comments: Location: RUE; Position: Sitting Physical Findings 0 Status: Comments: PHQ-9 Adult Depression Screening Height 70 in Status: Weight 215 lb Status: Body Mass Index Calculated 30.85 kg/m2 Status: Body Surface Area Calculated 2.15 m2 Status: Temperature 97.7 f Status: Comments: Method: Oral Heart Rate 60 /min Status: Respiration Rate 16 /min Status: Physical Findings 0 Status: Comments: Alcohol Screen - How many times in the past yr have you had 5 (for M) or 4 (for F) or 4 (for all > 65yrs) or more drinks in a day? Results Date Description Value Details Results not documented Plan of Care Name Dates Details Planned Observations Planned Goals not documented Planned Encounters Appointment; GELACIO IVY M.D. On: 08-Nov-2018 13:45 Appointment; MELITA ECHO On: 06-Dec-2018 15:00 Appointment; LOBITO BROWNING M.D. On: 12-Dec-2018 13:00 Appointment; SOUTH, DEVICE On: 22-Dec-2018 9:15 Interventions Provided Follow-ups/Referrals* Follow-up visit in 3 months; Done: 10 Aug 2018 Instructions Name Dates Details Instructions not documented Encounters Appointment; GELACIO IVY M.D. Encounter Diagnosis: Problem not documented On: 11-Sep-2016 14:15 Appointment; LOBITO BROWNING M.D. Encounter Diagnosis: Problem not documented On: 19-Oct-2016 14:20 Appointment; IRAM MANNING NP Encounter Diagnosis: Problem not documented On: 15-Dec-2016 13:30 Appointment; GELACIO IVY M.D. Encounter Diagnosis: Problem not documented On: 06-May-2017 15:45 Appointment; MELLO LEON M.D. Encounter Diagnosis: Problem not documented On: 31-May-2017 10:15 Appointment; LOBITO BROWNING M.D. Encounter Diagnosis: Problem not documented On: 07-Jun-2017 13:40 Appointment; ANGELINA BELTRNA Encounter Diagnosis: Problem not documented On: 24-Jun-2017 9:15 Appointment; GELACIO IVY M.D. Encounter Diagnosis: Problem not documented On: 04-Aug-2017 14:00 Appointment; GELACIO IVY M.D. Encounter Diagnosis: Problem not documented On: 04-Nov-2017 10:45 Appointment; GELACIO IVY M.D. Encounter Diagnosis: Problem not documented On: 04-Nov-2017 11:00 Appointment; MELITA, ECHO Encounter Diagnosis: Problem not documented On: 29-Nov-2017 10:00 Appointment; LOBITO BROWNING M.D. Encounter Diagnosis: Problem not documented On: 08-Dec-2017 10:40 Appointment; MELITA, ECHO Encounter Diagnosis: Problem not documented On: 08-Dec-2017 11:00 Appointment; IRAM MANNING NP Encounter Diagnosis: Problem not documented On: 21-Dec-2017 12:30 Appointment; ANGELINA BELTRAN Encounter Diagnosis: Problem not documented On: 06-Jan-2018 9:45 Appointment; GELACIO IVY M.D. Encounter Diagnosis: Problem not documented On: 02-Feb-2018 13:15 Appointment; GELACIO IVY M.D. Encounter Diagnosis: Problem not documented On: 17-Feb-2018 15:15 Appointment; GELACIO IVY M.D. Encounter Diagnosis: Problem not documented On: 28-Feb-2018 14:30 Appointment; GELACIO IVY M.D. Encounter Diagnosis: Problem not documented On: 10-May-2018 13:15 Appointment; GELACIO IVY M.D. Encounter Diagnosis: Problem not documented On: 10-May-2018 13:15 Appointment; LOBITO BROWNING M.D. Encounter Diagnosis: Problem not documented On: 08-Jun-2018 14:20 Appointment; ANGELINA BELTRAN Encounter Diagnosis: Problem not documented On: 23-Jun-2018 9:00
[2018-08-24] MEDS ORDERED: ASPIRIN 81 MG CHEW TAB PO ONE ×2 (18:00→20:15)
[2018-08-24 18:20] LABS: BASOPHILS # (AUTO) 0.1 (0.0-0.1); BASOPHILS % 1.1 % (0.0-1.0); EOSINOPHILS # (AUTO) 0.3 (0.0-0.4); EOSINOPHILS % 4.6 % (0.0-6.0); HEMATOCRIT 41.4 % (38.2-49.6); HEMOGLOBIN 14.5 g/dL (14.0-18.0); LYMPHOCYTES % 26.7 % (18.0-39.1); MEAN CORPUSCULAR HEMOGLOBIN 33.8 pg (28-32); MEAN CORPUSCULAR VOLUME 96.5 fL (81-99); MONOCYTES # (AUTO) 1.2 (0.2-0.8); MONOCYTES % 16.6 % (4.4-11.3); NEUTROPHILS # (AUTO) 3.7 (2.1-6.9); NEUTROPHILS % 50.6 % (38.7-80.0); PLATELET COUNT 219 x10e3/uL (140-360); RED BLOOD COUNT 4.29 x10e6/uL (4.3-5.7); RED CELL DISTRIBUTION WIDTH 14.4 % (11.7-14.4)
--- NOTE | 2018-08-24 18:39 | Diagnostic Imaging Report ---
CHEST SINGLE (PORTABLE), 08/24/2018 5:59 PM Technique: CHEST SINGLE (PORTABLE) Comparison: 02/14/2018 Clinical history: Chest pain Findings: See Impression Impression: Limited by body habitus and portable technique. 1. Lines/Tubes: Stable visualized left chest wall ICD. 2. Stable enlarged cardiomediastinal silhouette status post median sternotomy. 3. Central vascular congestion. Stable right basilar opacity, present over multiple priors, which may reflect chronic pleural effusion/scarring and atelectasis. 4. Newly appreciated left basilar opacity may reflect atelectasis or consolidation with small left effusion. Consider follow-up upright PA and lateral. Signed by: Dr Destini Lockhart MD on 08/24/2018 6:36 PM
[2018-08-24 18:46] LABS: CLARITY,URINE HAZY (CLEAR); COLOR,URINE YELLOW (YELLOW)
[2018-08-24 18:47] LABS: BILIRUBIN,URINE NEGATIVE (NEGATIVE); KETONES,URINE NEGATIVE (NEGATIVE); LEUKOCYTE ESTERASE ,URINE TRACE (NEGATIVE); NITRITE,URINE POSITIVE (NEGATIVE); PROTEIN,URINE DIPSTICK NEGATIVE (NEGATIVE); URINE UROBILINOGEN 0.2 mg/dL (0.2 - 1)
--- NOTE | 2018-08-24 18:55 | NUR ---
BLOOD WAS REDRAWN BECAUSE LAB CALLED AND SAID THAT IT WAS HEMOLYZED. EKG DONE. FAMILY AT BEDSIDE
[2018-08-24 18:56] LABS: BACTERIA,URINE MANY /HPF; EPITHELIAL CELLS,URINE FEW /LPF
[2018-08-24 19:21] LABS: INR 0.97; PROTHROMBIN TIME 13.8 seconds (11.9-14.5)
[2018-08-24 19:32] LABS: ALANINE AMINOTRANSFERASE 27 IU/L (0-55); ALBUMIN 3.6 g/dL (3.5-5.0); ALKALINE PHOSPHATASE 47 IU/L (40-150); BLOOD UREA NITROGEN 23 mg/dL (7-26); BUN/CREATININE RATIO 21 (6-25); CALCIUM 9.2 mg/dL (8.4-10.2); CARBON DIOXIDE 20 mmol/L (22-29); CHLORIDE 99 mmol/L (98-107); CREATINE KINASE 70 IU/L (30-200); CREATININE, SERUM 1.09 mg/dL (0.72-1.25); EST GLOMERULAR FILTRATION RATE > 60 ML/MIN (60-); GLUCOSE 104 mg/dL (74-118); SODIUM 133 mmol/L (136-145)
[2018-08-24] MEDS ORDERED: LOSARTAN POTASS25 MG PO (19:49)
[2018-08-24] MEDS ORDERED: ARICEPT5 MG PO (19:50)
[2018-08-24] MEDS ORDERED: ZETIA10 MG PO (19:50)
[2018-08-24 20:51] VITALS: BP 142/62
--- NOTE | 2018-08-24 20:51 | NUR ---
RECEIVED PATIENT AAOX2, MOMENTS OF CONFUSION HX OF DEMENTIA. PATIENT IS UNABLE TO AMBULATE, DOES TRANSFERS PER FAMILY MEMBER. TELE # 14 PACED. 20G R HAND SL. REDNESS TO BUTTOCK, AND SKIN TEAR AND RASH IN LEFT GROIN AREA. PCT PERFORMED BED BATH, PINK FOAM DRSG APPLIED. DENIES PAIN. NO NEEDS AT THIS TIME. BED LOCKED AND IN LOWEST POSITION, CALL LIGHT WITHIN EASY REACH. WILL CONTINUE TO MONITOR PATIENT CLOSELY. UNABLE TO COMPLETE FAM HX D/T PATIENT BEING POOR HISTORIAN AND NO FAMILY AVAILABLE AT THIS TIME.
[2018-08-24 21:20] VITALS: BP 138/61
[2018-08-25] VITALS: BP 135/57
[2018-08-25 04:00] VITALS: BP 134/60
--- NOTE | 2018-08-25 06:27 | Diagnostic Imaging Report ---
EXAMINATION: CHEST SINGLE (PORTABLE) INDICATION: CHF COMPARISON: 08/24/2018 FINDINGS: AP view TUBES and LINES: Stable visualized left chest wall ICD. LUNGS: Stable central pulmonary venous congestion. Stable right basilar opacity, likely chronic scarring or atelectasis. Previously noted left basilar opacity is less conspicuous suggesting atelectasis. PLEURA: No pleural effusion or pneumothorax. HEART AND MEDIASTINUM: Stable enlargement of the cardiac silhouette. CABG clips. BONES AND SOFT TISSUES: No acute osseous lesion. Soft tissues are unremarkable. UPPER ABDOMEN: No free air under the diaphragm. IMPRESSION: Decreased conspicuity of the left basilar opacity suggesting atelectasis. Stable vascular congestion and cardiomegaly. Signed by: DR. Collin Stern MD on 08/25/2018 6:24 AM
--- NOTE | 2018-08-25 07:20 | NUR ---
Received patient resting in bed at this time no signs of distress. Bed in lowest position, wheels locked, side rails up 2, call light in reach. Will continue to monitor.
[2018-08-25 08:21] VITALS: BP 130/62
[2018-08-25] MEDS ORDERED: SPIRONOLACTONE 25 MG TAB PO ONE (08:30)
[2018-08-25] MEDS ORDERED: CARVEDILOL 3.125 MG TAB PO SCH (08:30)
[2018-08-25] MEDS ORDERED: POTASSIUM CHLORIDE 10MEQ EA PO ONE (08:30)
[2018-08-25] MEDS ORDERED: BISACODYL 10 MG SUPP PR ONE (08:45)
[2018-08-25] MEDS ORDERED: SENNOSIDES 8.6 MG TAB PO SCH ×2 (08:45→09:00)
[2018-08-25] MEDS ORDERED: FUROSEMIDE INJ 10 MG/ML 4 ML VIAL IV SCH (09:00)
[2018-08-25] MEDS ORDERED: MAGNESIUM HYDROXIDE 30 ML UDC PO ONE (09:00)
[2018-08-25] MEDS ORDERED: FUROSEMIDE 40 MG TAB PO SCH (09:00)
[2018-08-25] MEDS ORDERED: CARVEDILOL 12.5 MG TAB PO SCH (09:00)
[2018-08-25] MEDS ORDERED: ASPIRIN 81 MG ENTERIC COATED PO SCH (09:00)
[2018-08-25] MEDS ORDERED: LOSARTAN POTASSIUM 25 MG TAB PO SCH (09:00)
[2018-08-25] MEDS: FUROSEMIDE INJ 10 MG/ML 4 ML VIAL IV SCH ×2 (09:11→12:15)
--- NOTE | 2018-08-25 09:12 | Discharge Summary ---
PRIMARY CARE PHYSICIAN: Dr. Gonsalo Ventura FINAL DIAGNOSES 1. Xmqak-mk-islicad systolic dysfunction congestive heart failure associated with cardiomyopathy, implantable cardioverter-defibrillator, coronary artery disease. 2. Constipation. SUMMARY: Patient is an 87-year-old male on Lasix 40 mg twice a day. Came in with acute exacerbation of heart failure. Patient had a very similar problem previously. He had ICD in place. He is stable. I will add on Aldactone 25 mg twice a day and stool softener. Patient should be able to go home today after IV Lasix. Discussed with the patient our plan of treatment. Job#: [id number]
[2018-08-25 09:48] VITALS: BP 130/62
--- NOTE | 2018-08-25 10:15 | NUR ---
Patient A/O x2, slight shortness of breath on RA. Tele #14 paced rhythm. Skin intact, 1+ pitting edema in ankles. R hand IV SL. Patient needs assistance with transfers, voids in urinal. Redness on left buttock, foam dressing in place. Left groin rash. Call light in reach, family at bedside, will continue to monitor.
[2018-08-25] MEDS ORDERED: COLACE100 MG PO (10:20)
[2018-08-25] MEDS ORDERED: ALDACTONE25 MG PO (10:20)
--- NOTE | 2018-08-25 10:22 | NUR ---
CASE MANAGEMENT INITIAL ASSESSMENT Mobile Phlebotomist to bedside to discuss plan of care with patient/family. CM/SW role and care transitions discussed. Anticipated discharge plan discussed along with duration of care. CM/SW discussed patients right to make decisions in care. CM/SW work hours given. Patient lives: with his Serenity Cotter Admit/Transfer: thru ED Hospital/ER visits since last admit: last hospitalization Feb 2018, 0 ED visits POA/Emergency contact: Serenity Cotter [phone]; Damion Wilcox [phone] Current/Previous Home Health: none PCP/Follow-up Care: Dr. Ventura; follows with cardiology but does not remember name Current/Previous DME: electric scooter Medications (referring to index hospitalization or the first time you were in the hospital) a. Were changes made in your medications when you were in the hospital on [date of index hospitalization]? thinks there was a dose change in Lasix b. Did you understand the changes? yes c. Were you able to obtain your new medications right away? yes d. Were you able to take your medications like the doctor wanted you to? yes e. Did the hospital give you an accurate, easy to understand list of medications when you left? yes Scale of 1-10 how comfortable does patient feel with disease management in outpatient settin Other Services: none Employment Status: retired Areas of Concerns: CHF Referral Needs: may need home health. spoke to pt and grandson at bedside. they do not want home health at this time. will follow up with PCP within 7 days of dc and speak to him about HH Education Needs: CHF education, medical management IMM/CHUN given and signed (if applicable): CHUN Goal for discharge: home CM/SW left business card at the bedside with contact information. Name and number was also written on the patients whiteboard. Patient verbalized understanding of discussion. CM will follow-up with ongoing discharge and transition of care needs.
[2018-08-25 10:53] LABS: CREATINE KINASE MB 2.4 ng/mL (0-5.0)
[2018-08-25 12:12] VITALS: BP 124/59
--- NOTE | 2018-08-25 12:15 | NUR ---
Removed patients IV, Catheter tip intact and pressure dressing applied.
--- NOTE | 2018-08-25 13:02 | NUR ---
Patient discharged from facility. Patient gathered all personal belongings, discharge information/follow up, and prescriptions. No signs of distress when leaving facility.
[2018-08-25] MEDS ORDERED: EZETIMIBE 10 MG TAB PO SCH (21:00)
[2018-08-25] MEDS ORDERED: DONEPEZIL HCL 5 MG TAB PO SCH (21:00)
== END 2018-08-25 13:02 | disposition home or self-care (01) ==
LOC: ER 17:37 → INTOOBSV 20:27 → ERHOLD 20:27 → MED/SURG 20:55
PROVIDERS: ADMIT Internal Medicine; ATTEND Internal Medicine
DX: I11.0 Hypertensive heart disease with heart failure (principal); I50.23 Acute on chronic systolic (congestive) heart failure; I25.10 Atherosclerotic heart disease of native coronary artery without angina pectoris; F03.90 Unspecified dementia, unspecified severity, without behavioral disturbance, psychotic disturbance, mood disturbance, and anxiety; E78.5 Hyperlipidemia, unspecified; Z95.810 Presence of automatic (implantable) cardiac defibrillator; Z95.1 Presence of aortocoronary bypass graft; Z95.2 Presence of prosthetic heart valve; Z88.8 Allergy status to other drugs, medicaments and biological substances; K59.00 Constipation, unspecified
CPT/HCPCS: 36415; 71045 ×2; 80053; 81001; 82550 ×2; 82553 ×2; 83605; 83735; 83880 ×2; 84484 ×2; 85025; 85610; 85730; 87040; 87086; 87186; 93005; 93306; 99284; G0378 ×2; J1940